=== PATIENT | female | born 1950 | race Caucasian/White ===

== ENCOUNTER 2016-03-06 11:34 | Outpatient (RCR) | payer MEDICARE, OTHER ==
--- OUTSIDE RECORDS SUMMARY | 2015-12-27 13:09 | XMS REPORT | Continuity of Care Document ---
Author Author [facility] Organization [facility] Address Unknown Phone Unavailable Care Team Providers Care Butter Production Supervisor Name Role Phone LalaLeah hernández PCP [phone] Source Comments Some departments are not documenting in the electronic medical record. If you do not see the information that you expected, contact Release of Information in the Health Information Management department at [phone] for further assistance in locating additional records.[facility] Active Allergies and Adverse Reactions No Known Allergies Current Medications Prescription Sig. Disp. Refills Start End Date Status Date warfarin (COUMADIN) 5 mg Take by mouth daily. Active tablet 10mg Sun, Tu, Wed, Fri, Sat; 5 mg M and Thurs acetaminophen (TYLENOL) Take 500 mg by mouth Active 500 mg tablet every 6 hours as needed. diltiazem CD (CARDIZEM Take 120 mg by mouth Active CD) 120 mg capsule twice daily. metFORMIN (GLUCOPHAGE) Take 500 mg by mouth Active 500 mg tablet twice daily with meals. vitamins, B complex tab Take 1 Tab by mouth Active daily. HYDROcodone/acetaminophen Take 1 Tab by mouth as Active (NORCO) 7.5/325 mg tablet Needed for Pain Pt states taking once a month for knee pain cholecalciferol (VITAMIN Take 1,000 Units by mouth Active D-3) 1,000 units tablet daily. Active Problems Problem Noted Date Type 2 diabetes mellitus (HCC) 10/16/2015 Essential hypertension 10/16/2015 Osteoarthritis 10/16/2015 PE (pulmonary thromboembolism) (HCC) 10/16/2015 Hyperparathyroidism (HCC) 10/16/2015 Persistent atrial fibrillation (HCC) 10/16/2015 Overview: June 21, 2015 noted AF (has had in past but usually spontaneously converts July 2015 ORACIO/Cardioversion Hypercalcemia 08/01/2014 Most Recent Encounters Date Type Specialty Providers Description 10/24/2015 Telephone Oncology Jeff Scott MD Results 10/17/2015 Office Visit Cardiology Richard Hdez MD Cardiac Eval - AFIB 10/17/2015 Documentation Cardiology Mariaa De Anda Records Request - Villa Francis MD Social History Tobacco Use Types Packs/Day Years Used Date Never Smoker Smokeless Tobacco: Never Used Alcohol Use Drinks/Week oz/Week Comments Yes 1 Glasses of 0.6 i-2 a month socially wine Last Filed Vital Signs Vital Sign Reading Time Taken Blood Pressure 148/80 10/17/2015 9:31 AM CDT Pulse 65 10/17/2015 9:31 AM CDT Temperature 36.8 C (98.2 F) 03/27/2015 1:43 PM CASING IN LINE SETTER Respiratory Rate 16 03/27/2015 1:43 PM CASING IN LINE SETTER Height 1.702 m (5' 7") 10/17/2015 9:31 AM CDT Weight 107.956 kg (238 lb) 10/17/2015 9:31 AM CDT Body Mass Index 37.27 10/17/2015 9:31 AM CDT Oxygen Saturation 99% 03/27/2015 1:43 PM CASING IN LINE SETTER Plan of Care Health Maintenance Due Date Last Done Comments Hepatitis C Screening 1948 Physical (Comprehensive) 1955 Exam Pertussis Vaccine 1959 Tetanus Vaccine 1965 Dilated Eye Exam 1966 Foot Exam 1966 Hba1c 1966 Microalbumin 1966 Breast Cancer Screening 1988 Colorectal Cancer 1998 Screening Shingles Vaccine 2008 Osteoporosis Screening 2013 Prevnar/Pneumovax (#1) 2013 Influenza Vaccine 10/18/2015 Results from Last 3 Months Not on file
[2015-12-27 13:34] LABS: INR 2.6 (0.8-1.4); PROTHROMBIN TIME PATIENT 27.8 SEC (12.2-14.7)
[2016-01-17 09:51] LABS: INR 2.9 (0.8-1.4); PROTHROMBIN TIME PATIENT 29.9 SEC (12.2-14.7)
[2016-01-31 11:51] LABS: INR 2.4 (0.8-1.4)
[~2016-03-06 11:34] MED LIST: ACET-819 PO; ACHD5005 PO; ALBU8.5H4 IH; ASP81CT PO; ASP81TEC PO; ASPI-875 PO; B COMPLEX; BISO1TAB39 PO; CHOL100048 PO; DICL100G20 TOP; DILT120C PO; DILT120C53 PO; DILT120T11 PO; DOFE250C PO; ENOX100D9 SQ; HYDR-3812 PO; HYDR-3816 PO; HYDR-3857 PO; METF500T PO; METF500T4 PO; METO50TA2 PO; MTF500T PO; MULT-608 PO; OXYC-12 PO; PARO10TA21 PO; PARO20TA5 PO; VITA1CAP PO; VITA1TAB44 PO; WARF-48 PO; WARF10TA5 PO; WARF5TAB6 PO; WARF5TAB8 PO; WARF7.5T PO; WRF10T PO
[2016-03-06 11:52] LABS: INR 2.7 (0.8-1.4); PROTHROMBIN TIME PATIENT 28.2 SEC (12.2-14.7)
== END 2016-03-26 | disposition home or self-care (01) ==
LOC: LAB 11:34
PROVIDERS: ATTEND Internal Medicine Cardiovascular Disease
DX: I48.91 Unspecified atrial fibrillation (principal)
CPT/HCPCS: 36415; 85610

== ENCOUNTER 2016-05-12 12:46 | Outpatient (RCR) | payer MEDICARE, OTHER ==
--- OUTSIDE RECORDS SUMMARY | 2016-04-02 10:02 | XMS REPORT | Continuity of Care Document ---
Author Author [facility] Organization [facility] Address Unknown Phone Unavailable Care Team Providers Care Stationary Engineer Supervisor Name Role Phone LalaLeah hernández PCP [phone] Source Comments Some departments are not documenting in the electronic medical record. If you do not see the information that you expected, contact Release of Information in the Health Information Management department at [phone] for further assistance in locating additional records.[facility] Active Allergies and Adverse Reactions No Known Allergies Current Medications Prescription Sig. Disp. Refills Start End Date Status Date warfarin (COUMADIN) 5 mg Take by mouth daily. Active tablet 10mg Sun, Tu, Wed, Fri, Sat; 5 mg M and Th acetaminophen (TYLENOL) Take 500 mg by mouth [...] spontaneously converts July 2015 ORACIO/Cardioversion Hypercalcemia 08/01/2014 Social History Tobacco Use Types Packs/Day Years Used Date Never Smoker Smokeless Tobacco: Never Used Alcohol Use Drinks/Week oz/Week Comments Yes 1 Glasses of 0.6 i-2 a month socially wine Last Filed Vital Signs Vital Sign Reading Time Taken Blood Pressure 148/80 10/17/2015 9:31 AM CDT Pulse 65 10/17/2015 9:31 AM CDT Temperature 36.8 C (98.2 F) 03/27/2015 1:43 PM PROTOCOL MANAGER Respiratory Rate 16 03/27/2015 1:43 PM PROTOCOL MANAGER Height 1.702 m (5' 7") 10/17/2015 9:31 AM CDT Weight 107.956 kg (238 lb) 10/17/2015 9:31 AM CDT Body Mass Index 37.27 10/17/2015 9:31 AM CDT Oxygen Saturation 99% 03/27/2015 1:43 PM PROTOCOL MANAGER Plan of Care Health Maintenance Due Date [...]
[2016-04-02 10:09] LABS: INR 2.6 (0.8-1.4); PROTHROMBIN TIME PATIENT 27.5 SEC (12.2-14.7)
[2016-05-01 12:00] LABS: INR 3.2 (0.8-1.4)
[2016-05-12 13:13] LABS: INR 2.6 (0.8-1.4); PROTHROMBIN TIME PATIENT 27.4 SEC (12.2-14.7)
== END 2016-07-01 | disposition home or self-care (01) ==
LOC: LAB 12:46
PROVIDERS: ATTEND Internal Medicine Cardiovascular Disease
DX: I48.91 Unspecified atrial fibrillation (principal); D68.52 Prothrombin gene mutation; I26.99 Other pulmonary embolism without acute cor pulmonale
CPT/HCPCS: 36415; 85610

== ENCOUNTER → 2016-06-03 | Outpatient (CLI) | payer MEDICARE, OTHER ==
[2016-06-03 10:26] LABS: BASOPHILS % (AUTO) 0 % (0-10); EOSINOPHILS # (AUTO) 0.3 10^3/uL (0.0-0.3); EOSINOPHILS % (AUTO) 5 % (0-10); LYMPHOCYTES # (AUTO) 1.9 X 10^3 (1.0-4.0); LYMPHOCYTES % (AUTO) 34 % (12-44); MEAN CORPUSCULAR HEMOGLOBIN 25 PG (25-34); MEAN CORPUSCULAR HGB CONC 31 G/DL (32-36); MEAN CORPUSCULAR VOLUME 81 FL (80-99); MEAN PLATELET VOLUME 10.2 FL (7.4-10.4); MONOCYTES # (AUTO) 0.4 X 10^3 (0.0-1.0); MONOCYTES % (AUTO) 7 % (0-12); NEUTROPHILS % (AUTO) 53 % (42-75); PLATELET COUNT 265 10^3/uL (130-400); WHITE BLOOD COUNT 5.7 10^3/uL (4.3-11.0)
[2016-06-03 10:45] LABS: ALANINE AMINOTRANSFERASE 14 U/L (0-55); ALBUMIN 4.2 G/DL (3.2-4.5); ANION GAP 8 MMOL/L (5-14); ASPARTATE AMINO TRANSFERASE 15 U/L (5-34); BILIRUBIN,TOTAL 0.4 MG/DL (0.1-1.0); BLOOD UREA NITROGEN 13 MG/DL (7-18); BUN/CREATININE RATIO 20; CALCIUM 9.7 MG/DL (8.5-10.1); CARBON DIOXIDE 23 MMOL/L (21-32); CHLORIDE 109 MMOL/L (98-107); CHOLESTEROL 186 MG/DL (< 200); CREATININE SERUM 0.66 MG/DL (0.60-1.30); GFR ESTIMATED > 60; GLUCOSE 110 MG/DL (70-105); POTASSIUM 4.4 MMOL/L (3.6-5.0); SODIUM 140 MMOL/L (135-145); TRIGLYCERIDES 110 MG/DL (<150)
[2016-06-03 11:05] LABS: THYROID STIMULATING HORMONE 1.04 UIU/ML (0.35-4.94)
[2016-06-04 07:47] LABS: MICROALBUMIN/CREATININE RATIO 9.2 mg/gCR (0.0-30.0)
== END ==
LOC: LAB 10:02
PROVIDERS: ATTEND Internal Medicine
DX: Z00.00 Encounter for general adult medical examination without abnormal findings (principal); E11.65 Type 2 diabetes mellitus with hyperglycemia; E78.1 Pure hyperglyceridemia; E78.00 Pure hypercholesterolemia, unspecified
CPT/HCPCS: 36415; 80053; 82043; 82465; 83036; 84443; 84478; 85025

== ENCOUNTER → 2016-06-26 | Outpatient (CLI) | payer MEDICARE, OTHER ==
--- NOTE | 2016-06-26 20:04 | Diagnostic Imaging Report ---
Bilateral diagnostic mammogram. INDICATION: Increased calcifications seen in the breasts. COMPARISON: 06/21/2015 and prior exams. The current study was also evaluated with a Computer Aided Detection (CAD) system. FINDINGS: There are scattered benign-appearing desiccations seen bilaterally. Bilateral prominent benign-appearing calcifications are noted stable from June 2015 exam in favor of benign etiology. Stable inferior periareolar nodule likely an intramammary lymph node. IMPRESSION: Stable bilateral calcifications likely dystrophic or related to fibroadenomas. Annual screening mammograms recommended. ACR BI-RADS Category 2: Benign findings. Result letter will be mailed to the patient. Note: At least 10% of breast cancer is not imaged by mammography. Dictated by: Dictated on workstation # [id number]
== END ==
LOC: RAD 08:52
PROVIDERS: ATTEND Internal Medicine
DX: N63 Unspecified lump in breast (principal)
CPT/HCPCS: 77066

== ENCOUNTER 2016-08-07 11:28 | Outpatient (RCR) | payer MEDICARE, OTHER ==
[2016-06-09 15:44] LABS: INR 2.5 (0.8-1.4); PROTHROMBIN TIME PATIENT 27.1 SEC (12.2-14.7)
[2016-07-07 10:31] LABS: INR 2.5 (0.8-1.4)
[2016-08-07 11:46] LABS: PROTHROMBIN TIME PATIENT 22.7 SEC (12.2-14.7)
== END 2016-09-07 | disposition home or self-care (01) ==
LOC: LAB 11:28
PROVIDERS: ATTEND Internal Medicine Cardiovascular Disease
DX: I48.0 Paroxysmal atrial fibrillation (principal); D68.52 Prothrombin gene mutation; I26.99 Other pulmonary embolism without acute cor pulmonale
CPT/HCPCS: 36415; 85610

== ENCOUNTER 2016-11-11 10:56 | Outpatient (RCR) | payer MEDICARE, OTHER ==
[2016-09-09 14:50] LABS: INR 2.6 (0.8-1.4); PROTHROMBIN TIME PATIENT 27.7 SEC (12.2-14.7)
[2016-10-13 18:56] LABS: INR 2.6 (0.8-1.4)
[2016-11-11 11:37] LABS: INR 2.5 (0.8-1.4); PROTHROMBIN TIME PATIENT 26.9 SEC (12.2-14.7)
== END 2016-11-15 | disposition home or self-care (01) ==
LOC: LAB 10:56
PROVIDERS: ATTEND Internal Medicine Cardiovascular Disease
DX: I48.0 Paroxysmal atrial fibrillation (principal); D68.52 Prothrombin gene mutation; I26.99 Other pulmonary embolism without acute cor pulmonale
CPT/HCPCS: 36415; 85610

== ENCOUNTER → 2016-12-02 | Outpatient (CLI) | payer MEDICARE, OTHER ==
[2016-12-02 10:00] LABS: ALANINE AMINOTRANSFERASE 17 U/L (0-55); ALBUMIN 4.2 GM/DL (3.2-4.5); ANION GAP 10 MMOL/L (5-14); ASPARTATE AMINO TRANSFERASE 17 U/L (5-34); BILIRUBIN,TOTAL 0.3 MG/DL (0.1-1.0); BLOOD UREA NITROGEN 14 MG/DL (7-18); BUN/CREATININE RATIO 21; CALCIUM 10.1 MG/DL (8.5-10.1); CARBON DIOXIDE 24 MMOL/L (21-32); CHLORIDE 106 MMOL/L (98-107); CHOLESTEROL 185 MG/DL (< 200); CREATININE SERUM 0.66 MG/DL (0.60-1.30); DIRECT LDL 105 MG/DL (1-129); GFR ESTIMATED > 60; GLUCOSE 110 MG/DL (70-105); POTASSIUM 4.4 MMOL/L (3.6-5.0); SODIUM 140 MMOL/L (135-145); TOTAL PROTEIN 7.8 GM/DL (6.4-8.2); TRIGLYCERIDES 116 MG/DL (<150); VLDL CHOLESTEROL 23 MG/DL (5-40)
== END ==
LOC: LAB 08:53
PROVIDERS: ATTEND Internal Medicine
DX: E78.00 Pure hypercholesterolemia, unspecified (principal); E78.1 Pure hyperglyceridemia; E11.65 Type 2 diabetes mellitus with hyperglycemia

== ENCOUNTER 2017-03-05 11:27 | Outpatient (RCR) | payer MEDICARE, OTHER ==
[2016-12-11 13:43] LABS: INR 2.3 (0.8-1.4)
[2017-01-05 12:27] LABS: INR 2.8 (0.8-1.4); PROTHROMBIN TIME PATIENT 29.6 SEC (12.2-14.7)
[2017-02-02 15:34] LABS: INR 2.5 (0.8-1.4); PROTHROMBIN TIME PATIENT 27.2 SEC (12.2-14.7)
[~2017-03-05 11:27] MED LIST changes: -HYDR-3812 PO; +METO50TA15 PO; -METO50TA2 PO
[2017-03-05 11:46] LABS: INR 2.6 (0.8-1.4); PROTHROMBIN TIME PATIENT 28.1 SEC (12.2-14.7)
== END 2017-03-11 | disposition home or self-care (01) ==
LOC: LAB 11:27
PROVIDERS: ATTEND Internal Medicine Cardiovascular Disease
DX: I48.0 Paroxysmal atrial fibrillation (principal); D68.52 Prothrombin gene mutation; I26.99 Other pulmonary embolism without acute cor pulmonale
CPT/HCPCS: 36415; 85610

== ENCOUNTER → 2017-06-29 | Outpatient (CLI) | payer MEDICARE, OTHER ==
[~2017-06-29] MED LIST changes: +HYDR-34 PO; -HYDR-3816 PO; -METF500T4 PO; +METF500T5 PO
--- NOTE | 2017-06-29 13:40 | Diagnostic Imaging Report ---
INDICATION: Routine screening. COMPARISON: 06/26/2016 and 06/21/2015. TECHNIQUE: 2D and 3D bilateral screening mammography was performed with CAD. FINDINGS: Scattered fibroglandular densities are identified bilaterally. Benign calcific masses in the right breast appear stable. A benign-appearing nodular density in the retroareolar right breast appears stable. Benign calcifications in the left breast appear stable as well. No dominant mass or malignant appearing microcalcifications are seen. The axillae are unremarkable. IMPRESSION: No mammographic features suspicious for malignancy are identified. ACR BI-RADS Category 2: Benign findings. Result letter will be mailed to the patient. Note: At least 10% of breast cancer is not imaged by mammography. Dictated by: Dictated on workstation # [id number]
== END ==
LOC: RAD 09:49
PROVIDERS: ATTEND Internal Medicine
DX: Z12.31 Encounter for screening mammogram for malignant neoplasm of breast (principal)
CPT/HCPCS: 77067

== ENCOUNTER 2017-07-03 13:15 | Outpatient (RCR) | payer MEDICARE, OTHER ==
[2017-04-07 12:42] LABS: INR 2.6 (0.8-1.4); PROTHROMBIN TIME PATIENT 27.4 SEC (12.2-14.7)
[2017-05-05 11:37] LABS: INR 2.6 (0.8-1.4); PROTHROMBIN TIME PATIENT 28.1 SEC (12.2-14.7)
[2017-06-02 13:29] LABS: INR 2.7 (0.8-1.4); PROTHROMBIN TIME PATIENT 28.3 SEC (12.2-14.7)
[2017-07-03 13:34] LABS: INR 2.7 (0.8-1.4); PROTHROMBIN TIME PATIENT 28.5 SEC (12.2-14.7)
== END 2017-07-06 | disposition home or self-care (01) ==
LOC: LAB 13:15
PROVIDERS: ATTEND Internal Medicine Cardiovascular Disease
DX: I48.0 Paroxysmal atrial fibrillation (principal); D68.52 Prothrombin gene mutation; I26.99 Other pulmonary embolism without acute cor pulmonale
CPT/HCPCS: 36415; 85610

== ENCOUNTER 2017-10-13 10:24 | Outpatient (RCR) | payer MEDICARE, OTHER ==
[2017-08-03 12:50] LABS: INR 3.1 (0.8-1.4); PROTHROMBIN TIME PATIENT 32.1 SEC (12.2-14.7)
[2017-08-13 13:39] LABS: INR 2.2 (0.8-1.4); PROTHROMBIN TIME PATIENT 24.6 SEC (12.2-14.7)
[2017-09-10 11:41] LABS: PROTHROMBIN TIME PATIENT 31.4 SEC (12.2-14.7)
[2017-09-14 14:35] LABS: INR 2.4 (0.8-1.4)
[~2017-10-13 10:24] MED LIST changes: +METF-397 PO; -METF500T5 PO
[2017-10-13 11:30] LABS: INR 2.4 (0.8-1.4); PROTHROMBIN TIME PATIENT 26.6 SEC (12.2-14.7)
== END 2017-11-01 | disposition home or self-care (01) ==
LOC: LAB 10:24
PROVIDERS: ATTEND Internal Medicine Cardiovascular Disease
DX: I48.0 Paroxysmal atrial fibrillation (principal)
CPT/HCPCS: 36415; 85610

== ENCOUNTER 2017-11-12 13:31 | Outpatient (RCR) | payer MEDICARE, OTHER ==
[2017-11-12 13:55] LABS: INR 2.6 (0.8-1.4); PROTHROMBIN TIME PATIENT 27.8 SEC (12.2-14.7)
== END 2017-11-15 | disposition home or self-care (01) ==
LOC: LAB 13:31
PROVIDERS: ATTEND Internal Medicine Cardiovascular Disease
DX: I48.0 Paroxysmal atrial fibrillation (principal)
CPT/HCPCS: 36415; 85610

== ENCOUNTER → 2017-12-10 | Outpatient (CLI) | payer MEDICARE, OTHER ==
[2017-12-10 12:00] LABS: ALANINE AMINOTRANSFERASE 18 U/L (0-55); ALBUMIN 4.4 GM/DL (3.2-4.5); ALKALINE PHOSPHATASE 70 U/L (40-136); BILIRUBIN,TOTAL 0.4 MG/DL (0.1-1.0); BUN/CREATININE RATIO 21; CALCIUM 10.3 MG/DL (8.5-10.1); CARBON DIOXIDE 24 MMOL/L (21-32); CHLORIDE 106 MMOL/L (98-107); CHOLESTEROL 196 MG/DL (< 200); CREATININE SERUM 0.68 MG/DL (0.60-1.30); GFR ESTIMATED > 60; GLUCOSE 106 MG/DL (70-105); HDL CHOLESTEROL 68 MG/DL (40-60); POTASSIUM 4.4 MMOL/L (3.6-5.0); SODIUM 139 MMOL/L (135-145); TOTAL PROTEIN 7.6 GM/DL (6.4-8.2); TRIGLYCERIDES 97 MG/DL (<150); VLDL CHOLESTEROL 19 MG/DL (5-40)
[2017-12-10 12:20] LABS: FREE T4 (FREE THYROXINE) 1.06 NG/DL (0.70-1.48)
== END ==
LOC: RAD 11:08
PROVIDERS: ATTEND Internal Medicine
DX: E78.1 Pure hyperglyceridemia (principal); E03.9 Hypothyroidism, unspecified; E11.65 Type 2 diabetes mellitus with hyperglycemia; E78.00 Pure hypercholesterolemia, unspecified
CPT/HCPCS: 36415; 80053; 80061; 83036; 84439; 84443

== ENCOUNTER 2018-01-05 12:34 | Outpatient (RCR) | payer MEDICARE, OTHER ==
[2018-01-05 13:01] LABS: INR 2.7 (0.8-1.4); PROTHROMBIN TIME PATIENT 28.6 SEC (12.2-14.7)
[2018-02-04 11:56] LABS: INR 2.9 (0.8-1.4); PROTHROMBIN TIME PATIENT 30.2 SEC (12.2-14.7)
[2018-03-05 16:34] LABS: INR 2.2 (0.8-1.4); PROTHROMBIN TIME PATIENT 24.2 SEC (12.2-14.7)
== END 2018-04-05 | disposition home or self-care (01) ==
LOC: LAB 12:34
PROVIDERS: ATTEND Internal Medicine Cardiovascular Disease
DX: I48.0 Paroxysmal atrial fibrillation (principal)
CPT/HCPCS: 36415; 85610

== ENCOUNTER → 2018-03-09 | Outpatient (CLI) | payer MEDICARE, OTHER | LOC: CARD 12:49 | PROVIDERS: ATTEND Nurse Practitioner Family | DX: I48.0 Paroxysmal atrial fibrillation (principal); Q21.1 Atrial septal defect | CPT/HCPCS: 93306 ==

== ENCOUNTER 2018-05-10 11:57 | Outpatient (RCR) | payer MEDICARE, OTHER ==
[2018-04-19 12:28] LABS: INR 3.1 (0.8-1.4); PROTHROMBIN TIME PATIENT 32.1 SEC (12.2-14.7)
[2018-04-26 17:28] LABS: PROTHROMBIN TIME PATIENT 31.5 SEC (12.2-14.7)
[2018-05-10 12:20] LABS: PROTHROMBIN TIME PATIENT 23.8 SEC (12.2-14.7)
[2018-06-10 11:56] LABS: INR 2.2 (0.8-1.4); PROTHROMBIN TIME PATIENT 25.1 SEC (12.2-14.7)
[2018-07-08 14:03] LABS: PROTHROMBIN TIME PATIENT 23.7 SEC (12.2-14.7)
== END 2018-07-18 | disposition home or self-care (01) ==
LOC: LAB 11:57
PROVIDERS: ATTEND Internal Medicine Cardiovascular Disease
DX: I48.0 Paroxysmal atrial fibrillation (principal)
CPT/HCPCS: 36415; 85610

== ENCOUNTER → 2018-06-22 | Outpatient (CLI) | payer MEDICARE, OTHER ==
[2018-06-22 10:19] LABS: BASOPHILS % (AUTO) 0 % (0-10); EOSINOPHILS # (AUTO) 0.2 10^3/uL (0.0-0.3); EOSINOPHILS % (AUTO) 4 % (0-10); HEMATOCRIT 41 % (35-52); LYMPHOCYTES # (AUTO) 1.9 X 10^3 (1.0-4.0); LYMPHOCYTES % (AUTO) 38 % (12-44); MEAN CORPUSCULAR HEMOGLOBIN 26 PG (25-34); MEAN CORPUSCULAR HGB CONC 32 G/DL (32-36); MEAN CORPUSCULAR VOLUME 81 FL (80-99); MEAN PLATELET VOLUME 9.8 FL (7.4-10.4); MONOCYTES # (AUTO) 0.4 X 10^3 (0.0-1.0); MONOCYTES % (AUTO) 7 % (0-12); NEUTROPHILS # (AUTO) 2.6 X 10^3 (1.8-7.8); NEUTROPHILS % (AUTO) 51 % (42-75); PLATELET COUNT 268 10^3/uL (130-400); RED CELL DISTRIBUTION WIDTH 15.9 % (10.0-14.5); WHITE BLOOD COUNT 5.1 10^3/uL (4.3-11.0)
[2018-06-22 10:46] LABS: ALANINE AMINOTRANSFERASE 22 U/L (0-55); ALBUMIN 4.3 GM/DL (3.2-4.5); ALKALINE PHOSPHATASE 74 U/L (40-136); BILIRUBIN,TOTAL 0.5 MG/DL (0.1-1.0); BUN/CREATININE RATIO 16; CARBON DIOXIDE 26 MMOL/L (21-32); CHLORIDE 107 MMOL/L (98-107); CHOLESTEROL 204 MG/DL (< 200); CREATININE SERUM 0.69 MG/DL (0.60-1.30); GFR ESTIMATED > 60; GLUCOSE 103 MG/DL (70-105); HDL CHOLESTEROL 76 MG/DL (40-60); POTASSIUM 4.4 MMOL/L (3.6-5.0); SODIUM 140 MMOL/L (135-145); TOTAL PROTEIN 7.4 GM/DL (6.4-8.2); TRIGLYCERIDES 85 MG/DL (<150); VLDL CHOLESTEROL 17 MG/DL (5-40)
== END ==
LOC: LAB 10:03
PROVIDERS: ATTEND Internal Medicine
DX: Z00.00 Encounter for general adult medical examination without abnormal findings (principal); E11.65 Type 2 diabetes mellitus with hyperglycemia; E78.00 Pure hypercholesterolemia, unspecified; E78.1 Pure hyperglyceridemia
CPT/HCPCS: 36415; 80053; 80061; 83036; 84443; 85025

== ENCOUNTER → 2018-07-13 | Outpatient (CLI) | payer MEDICARE, OTHER ==
--- NOTE | 2018-07-13 13:41 | Diagnostic Imaging Report ---
INDICATION: Routine screening. COMPARISON: 06/29/2017 and 06/26/2016. TECHNIQUE: 2D and 3D bilateral screening mammography was performed with CAD. FINDINGS: Scattered fibroglandular densities are identified bilaterally. Calcified masses in the right breast appear stable. A stereotactic clip in the right breast is also again noted. A cluster of microcalcifications in the medial left breast are stable. No new mass or suspicious calcifications are seen. The axillae are unremarkable. IMPRESSION: No mammographic features suspicious for malignancy are identified. ACR BI-RADS Category 2: Benign findings. Result letter will be mailed to the patient. Note: At least 10% of breast cancer is not imaged by mammography. Dictated by: Dictated on workstation # [id number]
== END ==
LOC: RAD 11:22
PROVIDERS: ATTEND Internal Medicine
DX: Z12.31 Encounter for screening mammogram for malignant neoplasm of breast (principal)
CPT/HCPCS: 77067

== ENCOUNTER 2018-09-30 10:40 | Outpatient (RCR) | payer MEDICARE, OTHER ==
[2018-08-05 13:51] LABS: PROTHROMBIN TIME PATIENT 23.1 SEC (12.2-14.7)
[2018-09-02 11:47] LABS: INR 2.6 (0.8-1.4); PROTHROMBIN TIME PATIENT 29.3 SEC (12.2-14.7)
[2018-09-30 11:08] LABS: INR 2.2 (0.8-1.4); PROTHROMBIN TIME PATIENT 24.9 SEC (12.2-14.7)
[2018-10-28 11:41] LABS: INR 2.8 (0.8-1.4); PROTHROMBIN TIME PATIENT 30.4 SEC (12.2-14.7)
== END 2018-11-03 | disposition home or self-care (01) ==
LOC: LAB 10:40
PROVIDERS: ATTEND Internal Medicine Cardiovascular Disease
DX: I48.0 Paroxysmal atrial fibrillation (principal)
CPT/HCPCS: 36415; 85610

== ENCOUNTER → 2018-11-30 | Outpatient (CLI) | payer MEDICARE, OTHER ==
[2018-11-30 10:45] LABS: ALANINE AMINOTRANSFERASE 24 U/L (0-55); ALBUMIN 4.2 GM/DL (3.2-4.5); ALKALINE PHOSPHATASE 73 U/L (40-136); BILIRUBIN,TOTAL 0.4 MG/DL (0.1-1.0); BUN/CREATININE RATIO 24; CALCIUM 9.4 MG/DL (8.5-10.1); CARBON DIOXIDE 26 MMOL/L (21-32); CHLORIDE 107 MMOL/L (98-107); CHOLESTEROL 184 MG/DL (< 200); GFR ESTIMATED > 60; GLUCOSE 105 MG/DL (70-105); POTASSIUM 4.8 MMOL/L (3.6-5.0); SODIUM 139 MMOL/L (135-145); TRIGLYCERIDES 75 MG/DL (<150)
== END ==
LOC: LAB 09:36
PROVIDERS: ATTEND Internal Medicine
DX: Z00.00 Encounter for general adult medical examination without abnormal findings (principal); E11.65 Type 2 diabetes mellitus with hyperglycemia; E78.00 Pure hypercholesterolemia, unspecified; E78.1 Pure hyperglyceridemia
CPT/HCPCS: 36415; 80053; 82465; 83036; 84478

== ENCOUNTER 2019-02-11 12:10 | Outpatient (RCR) | payer MEDICARE, OTHER ==
[2018-11-30 10:43] LABS: INR 2.2 (0.8-1.4); PROTHROMBIN TIME PATIENT 25.6 SEC (12.2-14.7)
[2019-01-27 13:34] LABS: INR 3.1 (0.8-1.4); PROTHROMBIN TIME PATIENT 33.2 SEC (12.2-14.7)
[2019-02-11 12:29] LABS: INR 2.9 (0.8-1.4); PROTHROMBIN TIME PATIENT 31.7 SEC (12.2-14.7)
== END 2019-02-28 | disposition home or self-care (01) ==
LOC: LAB 12:10
PROVIDERS: ATTEND Internal Medicine Cardiovascular Disease
DX: I48.0 Paroxysmal atrial fibrillation (principal)
CPT/HCPCS: 36415; 85610

== ENCOUNTER 2019-05-12 10:22 | Outpatient (RCR) | payer MEDICARE, OTHER ==
[2019-03-03 15:08] LABS: PROTHROMBIN TIME PATIENT 32.5 SEC (12.2-14.7)
[2019-03-17 10:47] LABS: INR 2.2 (0.8-1.4); PROTHROMBIN TIME PATIENT 25.2 SEC (12.2-14.7)
[2019-04-14 13:52] LABS: INR 2.6 (0.8-1.4); PROTHROMBIN TIME PATIENT 28.7 SEC (12.2-14.7)
[2019-05-12 10:40] LABS: INR 2.9 (0.8-1.4); PROTHROMBIN TIME PATIENT 31.8 SEC (12.2-14.7)
== END 2019-06-01 | disposition home or self-care (01) ==
LOC: LAB 10:22
PROVIDERS: ATTEND Internal Medicine Cardiovascular Disease
DX: I48.0 Paroxysmal atrial fibrillation (principal)
CPT/HCPCS: 36415; 85610

== ENCOUNTER → 2019-06-01 | Outpatient (CLI) | payer MEDICARE, OTHER ==
[2019-06-01 12:02] LABS: BASOPHILS % (AUTO) 0 % (0-10); EOSINOPHILS # (AUTO) 0.3 10^3/uL (0.0-0.3); EOSINOPHILS % (AUTO) 5 % (0-10); HEMATOCRIT 41 % (35-52); HEMOGLOBIN 13.2 G/DL (11.5-16.0); LYMPHOCYTES # (AUTO) 1.9 X 10^3 (1.0-4.0); LYMPHOCYTES % (AUTO) 37 % (12-44); MEAN CORPUSCULAR HEMOGLOBIN 26 PG (25-34); MEAN CORPUSCULAR HGB CONC 32 G/DL (32-36); MEAN CORPUSCULAR VOLUME 82 FL (80-99); MONOCYTES # (AUTO) 0.4 X 10^3 (0.0-1.0); MONOCYTES % (AUTO) 8 % (0-12); NEUTROPHILS # (AUTO) 2.6 X 10^3 (1.8-7.8); NEUTROPHILS % (AUTO) 51 % (42-75); PLATELET COUNT 246 10^3/uL (130-400); RED CELL DISTRIBUTION WIDTH 15.3 % (10.0-14.5); WHITE BLOOD COUNT 5.2 10^3/uL (4.3-11.0)
[2019-06-01 12:14] LABS: ALBUMIN 4.2 GM/DL (3.2-4.5); CHLORIDE 107 MMOL/L (98-107); POTASSIUM 4.3 MMOL/L (3.6-5.0); SODIUM 140 MMOL/L (135-145)
[2019-06-01 12:16] LABS: TRIGLYCERIDES 119 MG/DL (<150); VLDL CHOLESTEROL 24 MG/DL (5-40)
[2019-06-01 12:17] LABS: GLUCOSE 99 MG/DL (70-105); TOTAL PROTEIN 7.6 GM/DL (6.4-8.2)
[2019-06-01 12:18] LABS: CARBON DIOXIDE 23 MMOL/L (21-32)
[2019-06-01 12:19] LABS: BILIRUBIN,TOTAL 0.5 MG/DL (0.1-1.0)
[2019-06-01 12:20] LABS: ALKALINE PHOSPHATASE 75 U/L (40-136); GFR ESTIMATED > 60
[2019-06-01 12:21] LABS: CHOLESTEROL 205 MG/DL (< 200)
[2019-06-01 12:22] LABS: BUN/CREATININE RATIO 17
[2019-06-01 12:23] LABS: HDL CHOLESTEROL 68 MG/DL (40-60)
[2019-06-01 12:24] LABS: ALANINE AMINOTRANSFERASE 16 U/L (0-55)
== END ==
LOC: LAB 11:36
PROVIDERS: ATTEND Internal Medicine
DX: E11.65 Type 2 diabetes mellitus with hyperglycemia (principal); I10 Essential (primary) hypertension; Z13.6 Encounter for screening for cardiovascular disorders
CPT/HCPCS: 36415; 80053; 80061; 82043; 83036; 84443; 85025

== ENCOUNTER → 2019-07-19 | Outpatient (CLI) | payer MEDICARE, OTHER ==
--- NOTE | 2019-07-19 19:24 | Diagnostic Imaging Report ---
EXAM: Digital mammogram bilateral screening COMPARISONS: 07/05/2018, 06/29/2017 and 06/26/2016. There are no current complaints. The current study was also evaluated with a Computer Aided Detection (CAD) system. FINDINGS: The fibroglandular tissue in both breasts is heterogeneously dense. This does limit the sensitivity of this exam. Overall, there does not appear to have been any significant change when compared to the prior study. No primary or secondary sign of malignancy is noted. The calcifications seen in both breasts on the prior exam are again evident and not significantly changed. IMPRESSION: There is no radiographic evidence for malignancy. ACR BI-RADS Category 1: Negative. Result letter will be mailed to the patient. Note: At least 10% of breast cancer is not imaged by mammography. Dictated by: Dictated on workstation # [id number]
== END ==
LOC: RAD 09:32
PROVIDERS: ATTEND Internal Medicine
DX: Z12.31 Encounter for screening mammogram for malignant neoplasm of breast (principal)
CPT/HCPCS: 77063; 77067

== ENCOUNTER 2019-07-27 09:40 | Outpatient (RCR) | payer MEDICARE, OTHER ==
[2019-06-16 11:00] LABS: INR 3.8 (0.8-1.4); PROTHROMBIN TIME PATIENT 38.9 SEC (12.2-14.7)
[2019-06-27 11:39] LABS: INR 3.6 (0.8-1.4); PROTHROMBIN TIME PATIENT 37.6 SEC (12.2-14.7)
[2019-07-01 10:27] LABS: INR 1.4 (0.8-1.4); PROTHROMBIN TIME PATIENT 18.2 SEC (12.2-14.7)
[2019-07-12 12:25] LABS: INR 2.1 (0.8-1.4); PROTHROMBIN TIME PATIENT 24.6 SEC (12.2-14.7)
[~2019-07-27 09:40] MED LIST changes: -WARF5TAB8 PO; +WRF5T PO
[2019-07-27 10:18] LABS: INR 2.1 (0.8-1.4); PROTHROMBIN TIME PATIENT 24.6 SEC (12.2-14.7)
== END 2019-09-14 | disposition home or self-care (01) ==
LOC: LAB 09:40
PROVIDERS: ATTEND Internal Medicine Cardiovascular Disease
DX: I48.0 Paroxysmal atrial fibrillation (principal)
CPT/HCPCS: 36415; 85610

== ENCOUNTER 2019-09-22 14:46 | Outpatient (RCR) | payer MEDICARE, OTHER ==
[2019-08-25 11:02] LABS: INR 2.4 (0.8-1.4); PROTHROMBIN TIME PATIENT 26.6 SEC (12.2-14.7)
[2019-09-22 15:09] LABS: INR 2.8 (0.8-1.4); PROTHROMBIN TIME PATIENT 29.9 SEC (12.2-14.7)
== END 2019-11-23 | disposition home or self-care (01) ==
LOC: LAB 14:46
PROVIDERS: ATTEND Internal Medicine Cardiovascular Disease
DX: I48.0 Paroxysmal atrial fibrillation (principal); Z79.01 Long term (current) use of anticoagulants
CPT/HCPCS: 36415; 85610

== ENCOUNTER → 2019-11-30 | Outpatient (CLI) | payer MEDICARE, OTHER ==
[2019-11-30 12:34] LABS: ALANINE AMINOTRANSFERASE 21 U/L (0-55); ALBUMIN 4.1 GM/DL (3.2-4.5); ALKALINE PHOSPHATASE 59 U/L (40-136); BILIRUBIN,TOTAL 0.3 MG/DL (0.1-1.0); BUN/CREATININE RATIO 25; CALCIUM 9.3 MG/DL (8.5-10.1); CARBON DIOXIDE 24 MMOL/L (21-32); CHLORIDE 108 MMOL/L (98-107); CHOLESTEROL 167 MG/DL (< 200); CREATININE SERUM 0.65 MG/DL (0.60-1.30); GFR ESTIMATED > 60; GLUCOSE 108 MG/DL (70-105); POTASSIUM 4.3 MMOL/L (3.6-5.0); SODIUM 141 MMOL/L (135-145); TOTAL PROTEIN 7.4 GM/DL (6.4-8.2); TRIGLYCERIDES 107 MG/DL (<150)
== END ==
LOC: LAB 11:44
PROVIDERS: ATTEND Internal Medicine
DX: E11.65 Type 2 diabetes mellitus with hyperglycemia (principal); I10 Essential (primary) hypertension; Z13.6 Encounter for screening for cardiovascular disorders
CPT/HCPCS: 36415; 80053; 82465; 83036; 84478

== ENCOUNTER 2020-01-18 10:37 | Outpatient (RCR) | payer MEDICARE, OTHER ==
[2019-11-03 15:04] LABS: PROTHROMBIN TIME PATIENT 23.3 SEC (12.2-14.7)
[2019-12-15 13:50] LABS: INR 2.8 (0.8-1.4); PROTHROMBIN TIME PATIENT 30.1 SEC (12.2-14.7)
[2020-01-18 11:07] LABS: INR 2.8 (0.8-1.4); PROTHROMBIN TIME PATIENT 29.6 SEC (12.2-14.7)
== END 2020-02-01 | disposition home or self-care (01) ==
LOC: LAB 10:37
PROVIDERS: ATTEND Internal Medicine Cardiovascular Disease
DX: I48.0 Paroxysmal atrial fibrillation (principal); Z79.01 Long term (current) use of anticoagulants
CPT/HCPCS: 36415; 85610

== ENCOUNTER 2020-04-20 11:42 | Outpatient (RCR) | payer MEDICARE, OTHER ==
[2020-02-15 12:41] LABS: INR 2.7 (0.8-1.4); PROTHROMBIN TIME PATIENT 28.6 SEC (12.2-14.7)
[2020-03-13 12:34] LABS: INR 2.2 (0.8-1.4); PROTHROMBIN TIME PATIENT 24.5 SEC (12.2-14.7)
[2020-04-06 12:54] LABS: INR 1.6 (0.8-1.4); PROTHROMBIN TIME PATIENT 19.2 SEC (12.2-14.7)
[2020-04-20 12:16] LABS: INR 2.5 (0.8-1.4); PROTHROMBIN TIME PATIENT 27.7 SEC (12.2-14.7)
== END 2020-05-15 | disposition home or self-care (01) ==
LOC: LAB 11:42
PROVIDERS: ATTEND Internal Medicine Cardiovascular Disease
DX: I48.0 Paroxysmal atrial fibrillation (principal); Z79.01 Long term (current) use of anticoagulants
CPT/HCPCS: 36415; 85610

== ENCOUNTER → 2020-05-22 | Outpatient (CLI) | payer MEDICARE, OTHER | LOC: CARD 15:00 | PROVIDERS: ATTEND Internal Medicine Cardiovascular Disease | DX: I51.7 Cardiomegaly (principal); Z95.818 Presence of other cardiac implants and grafts | CPT/HCPCS: 93306 ==

== ENCOUNTER → 2020-05-23 | Outpatient (CLI) | payer MEDICARE, OTHER ==
[2020-05-23 09:45] LABS: BASOPHILS % (AUTO) 1 % (0-10); EOSINOPHILS # (AUTO) 0.5 10^3/uL (0.0-0.3); EOSINOPHILS % (AUTO) 9 % (0-10); HEMATOCRIT 41 % (35-52); HEMOGLOBIN 12.8 g/dL (11.5-16.0); LYMPHOCYTES # (AUTO) 1.9 10^3/uL (1.0-4.0); LYMPHOCYTES % (AUTO) 36 % (12-44); MEAN CORPUSCULAR HEMOGLOBIN 27 pg (25-34); MEAN CORPUSCULAR HGB CONC 31 g/dL (32-36); MEAN CORPUSCULAR VOLUME 85 fL (80-99); MEAN PLATELET VOLUME 9.7 fL (9.0-12.2); MONOCYTES # (AUTO) 0.4 10^3/uL (0.0-1.0); MONOCYTES % (AUTO) 7 % (0-12); NEUTROPHILS # (AUTO) 2.6 10^3/uL (1.8-7.8); NEUTROPHILS % (AUTO) 48 % (42-75); PLATELET COUNT 228 10^3/uL (130-400); WHITE BLOOD COUNT 5.4 10^3/uL (4.3-11.0)
[2020-05-23 10:22] LABS: ALANINE AMINOTRANSFERASE 20 U/L (0-55); ALBUMIN 4.1 GM/DL (3.2-4.5); ALKALINE PHOSPHATASE 67 U/L (40-136); BILIRUBIN,TOTAL 0.4 MG/DL (0.1-1.0); BUN/CREATININE RATIO 23; CALCIUM 9.6 MG/DL (8.5-10.1); CARBON DIOXIDE 23 MMOL/L (21-32); CHLORIDE 107 MMOL/L (98-107); CHOLESTEROL 179 MG/DL (< 200); GFR ESTIMATED > 60; GLUCOSE 118 MG/DL (70-105); HDL CHOLESTEROL 67 MG/DL (40-60); SODIUM 140 MMOL/L (135-145); TOTAL PROTEIN 7.4 GM/DL (6.4-8.2); TRIGLYCERIDES 104 MG/DL (<150); VLDL CHOLESTEROL 21 MG/DL (5-40)
== END ==
LOC: LAB 09:17
PROVIDERS: ATTEND Internal Medicine
DX: Z13.6 Encounter for screening for cardiovascular disorders (principal); I10 Essential (primary) hypertension; E11.65 Type 2 diabetes mellitus with hyperglycemia
CPT/HCPCS: 36415; 80053; 80061; 82043; 83036; 84443; 85025

== ENCOUNTER → 2020-06-01 | Outpatient (CLI) | payer MEDICARE, OTHER ==
[~2020-06-01] MED LIST changes: +DILT120C85 PO; +DILT240C87 PO
[2020-06-08 10:23] LABS: BILIRUBIN,URINE NEGATIVE (NEGATIVE); CLARITY,URINE CLEAR; COLOR,URINE YELLOW; GLUCOSE, URINE (UA) NEGATIVE (NEGATIVE); KETONES,URINE NEGATIVE (NEGATIVE); NITRITE,URINE NEGATIVE (NEGATIVE); PH,URINE 5.5 (5-9); PROTEIN,URINE NEGATIVE (NEGATIVE)
[2020-06-08 10:24] LABS: AMORPHOUS SEDIMENT,UR LARGE AMOR URATES /LPF; BACTERIA,URINE NEGATIVE /HPF; CALCIUM OXALATE CRYSTALS,UR RARE /LPF; LEUKOCYTE ESTERASE ,URINE NEGATIVE (NEGATIVE)
== END ==
LOC: LAB 08:00
PROVIDERS: ATTEND Internal Medicine
DX: R35.0 Frequency of micturition (principal)
CPT/HCPCS: 81000

== ENCOUNTER 2020-06-12 08:53 | Day surgery (SDC) | payer MEDICARE, OTHER ==
[~2020-06-12] VITALS: Ht 170 cm; Wt 109.0 kg
[~2020-06-12 08:53] MED LIST changes: -DILT120C85 PO; -DILT240C87 PO
[2020-06-12] MEDS ORDERED: NS IV 1000 ML 1,000 ML ONE (08:54)
[2020-06-12] MEDS ORDERED: NS IV 1000 ML 1,000 ML IV SCH (09:00)
[2020-06-12] MEDS ORDERED: MIDAZOLAM 5 MG/5 ML (VERSED) VIAL IV ONE (09:00)
[2020-06-12 09:35] LABS: HEMOGLOBIN 13.3 g/dL (11.5-16.0); MEAN PLATELET VOLUME 10.1 fL (9.0-12.2); WHITE BLOOD COUNT 5.2 10^3/uL (4.3-11.0)
[2020-06-12] MEDS ORDERED: MIDAZOLAM 5 MG/5 ML (VERSED) VIAL ONE (09:36)
[2020-06-12] MEDS ORDERED: proPOfol 200 MG/20 ML (DIPRIVAN) VIAL IV ONE (09:36)
[2020-06-12 09:48] LABS: INR 3.3 (0.8-1.4)
[2020-06-12 09:55] LABS: ALANINE AMINOTRANSFERASE 17 U/L (0-55); ALBUMIN 4.3 GM/DL (3.2-4.5); ALKALINE PHOSPHATASE 79 U/L (40-136); BILIRUBIN,TOTAL 0.5 MG/DL (0.1-1.0); BUN/CREATININE RATIO 20; CALCIUM 10.5 MG/DL (8.5-10.1); CARBON DIOXIDE 24 MMOL/L (21-32); CHLORIDE 106 MMOL/L (98-107); CHOLESTEROL 187 MG/DL (< 200); CREATININE SERUM 0.82 MG/DL (0.60-1.30); GFR ESTIMATED > 60; GLUCOSE 134 MG/DL (70-105); HDL CHOLESTEROL 72 MG/DL (40-60); POTASSIUM 4.3 MMOL/L (3.6-5.0); SODIUM 141 MMOL/L (135-145); TOTAL PROTEIN 7.9 GM/DL (6.4-8.2); TRIGLYCERIDES 96 MG/DL (<150); VLDL CHOLESTEROL 19 MG/DL (5-40)
[2020-06-12] MEDS ORDERED: DILT120C85 PO (10:00)
[2020-06-12] MEDS ORDERED: DILT240C87 PO (10:00)
[2020-06-12 11:30] VITALS: BP 128/67
--- NOTE | 2020-06-12 14:16 | OPERATIVE REPORT ---
DATE OF SERVICE: 06/12/2020 PREOPERATIVE DIAGNOSIS: Symptomatic atrial fibrillation. POSTOPERATIVE DIAGNOSIS: Sinus rhythm. PROCEDURE: External electrical cardioversion. DESCRIPTION OF PROCEDURE: External electrical cardioversion was carried out after having obtained an informed consent. The patient is chronically and therapeutically anticoagulated for many months. Transesophageal echocardiography, therefore, was not carried out. Informed consent had been obtained for external electrical cardioversion. The nurse industrial maintenance technician gave short acting anesthesia. A 120 joules of synchronized biphasic shock was delivered through external pads, which converted atrial fibrillation to normal sinus rhythm. The patient tolerated the procedure well. Job ID: [id number] DocumentID: [id number] Dictated Date: 06/12/2020 10:56:49 Pathology Tech Date: 06/12/2020 14:15:38 Dictated By: MERCY GOMES MD, MA, FACP, FACC,
== END 2020-06-12 11:30 ==
LOC: CATH 08:53
PROVIDERS: ATTEND Internal Medicine Cardiovascular Disease
DX: I48.0 Paroxysmal atrial fibrillation (principal); G47.33 Obstructive sleep apnea (adult) (pediatric); M17.10 Unilateral primary osteoarthritis, unspecified knee; I27.20 Pulmonary hypertension, unspecified; E66.9 Obesity, unspecified; Z68.37 Body mass index [BMI] 37.0-37.9, adult; Z79.01 Long term (current) use of anticoagulants; Z79.84 Long term (current) use of oral hypoglycemic drugs; Z79.899 Other long term (current) drug therapy; Z95.818 Presence of other cardiac implants and grafts
CPT/HCPCS: 36415; 80053; 80061; 85027; 85610; 85730; 92960; 93005

== ENCOUNTER → 2020-07-19 | Outpatient (CLI) | payer MEDICARE, OTHER ==
[~2020-07-19] MED LIST changes: +DILT120C85 PO; +DILT240C87 PO
--- NOTE | 2020-07-19 14:16 | Diagnostic Imaging Report ---
Indication: Routine screening. Comparison is made with prior mammogram 07/19/2019 and 07/13/2018. 2-D and 3-D bilateral screening mammography was performed with CAD. Both breasts remain heterogeneously dense, limiting the sensitivity of mammography. Multiple partially calcified masses throughout the right breast appears stable. Calcifications in the left breast are stable. No new mass or malignant appearing microcalcifications are seen. Axillae are unremarkable. IMPRESSION: BI-RADS Category 2 No mammographic features suspicious for malignancy are identified. ACR BI-RADS Category 2: Benign findings. Result letter will be mailed to the patient. Note: At least 10% of breast cancer is not imaged by mammography. Dictated by: Dictated on workstation # [id number]
== END ==
LOC: RAD 10:45
PROVIDERS: ATTEND Internal Medicine
DX: Z12.31 Encounter for screening mammogram for malignant neoplasm of breast (principal)
CPT/HCPCS: 77063; 77067

== ENCOUNTER 2020-08-02 10:12 | Outpatient (RCR) | payer MEDICARE, OTHER ==
[2020-05-17 11:56] LABS: INR 3.6 (0.8-1.4); PROTHROMBIN TIME PATIENT 35.8 SEC (12.2-14.7)
[2020-05-31 10:42] LABS: INR 3.2 (0.8-1.4); PROTHROMBIN TIME PATIENT 33.2 SEC (12.2-14.7)
[2020-06-07 13:51] LABS: INR 3.3 (0.8-1.4); PROTHROMBIN TIME PATIENT 33.9 SEC (12.2-14.7)
== END 2020-08-15 | disposition home or self-care (01) ==
LOC: LAB 10:12
PROVIDERS: ATTEND Internal Medicine
DX: I48.0 Paroxysmal atrial fibrillation (principal); Z79.01 Long term (current) use of anticoagulants
CPT/HCPCS: 36415; 81000; 85610

== ENCOUNTER 2020-09-27 10:56 | Outpatient (RCR) | payer MEDICARE, OTHER ==
[2019-11-30 12:23] LABS: INR 3.6 (0.8-1.4); PROTHROMBIN TIME PATIENT 35.8 SEC (12.2-14.7)
[2020-07-09 12:50] LABS: INR 2.4 (0.8-1.4); PROTHROMBIN TIME PATIENT 26.5 SEC (12.2-14.7)
[2020-08-02 10:44] LABS: INR 2.6 (0.8-1.4); PROTHROMBIN TIME PATIENT 28.2 SEC (12.2-14.7)
[2020-08-30 11:18] LABS: INR 2.6 (0.8-1.4); PROTHROMBIN TIME PATIENT 28.5 SEC (12.2-14.7)
[2020-09-27 11:17] LABS: INR 2.9 (0.8-1.4); PROTHROMBIN TIME PATIENT 30.8 SEC (12.2-14.7)
== END 2020-10-07 | disposition home or self-care (01) ==
LOC: LAB 10:56
PROVIDERS: ATTEND Internal Medicine Cardiovascular Disease
DX: I48.0 Paroxysmal atrial fibrillation (principal); Z79.01 Long term (current) use of anticoagulants
CPT/HCPCS: 36415; 85610

== ENCOUNTER → 2020-11-20 | Outpatient (CLI) | payer MEDICARE, OTHER ==
[2020-11-20 10:40] LABS: BASOPHILS % (AUTO) 0 % (0-10); EOSINOPHILS # (AUTO) 0.4 10^3/uL (0.0-0.3); EOSINOPHILS % (AUTO) 7 % (0-10); HEMATOCRIT 39 % (35-52); HEMOGLOBIN 12.5 g/dL (11.5-16.0); LYMPHOCYTES # (AUTO) 1.5 10^3/uL (1.0-4.0); LYMPHOCYTES % (AUTO) 32 % (12-44); MEAN CORPUSCULAR HEMOGLOBIN 27 pg (25-34); MEAN CORPUSCULAR HGB CONC 32 g/dL (32-36); MEAN CORPUSCULAR VOLUME 85 fL (80-99); MEAN PLATELET VOLUME 9.6 fL (9.0-12.2); MONOCYTES # (AUTO) 0.5 10^3/uL (0.0-1.0); MONOCYTES % (AUTO) 9 % (0-12); NEUTROPHILS # (AUTO) 2.5 10^3/uL (1.8-7.8); NEUTROPHILS % (AUTO) 52 % (42-75); PLATELET COUNT 259 10^3/uL (130-400); WHITE BLOOD COUNT 4.9 10^3/uL (4.3-11.0)
[2020-11-20 10:59] LABS: CHOLESTEROL 191 MG/DL (< 200); TRIGLYCERIDES 83 MG/DL (<150)
[2020-11-20 11:19] LABS: BILIRUBIN,TOTAL 0.5 MG/DL (0.1-1.0); CALCIUM 10.2 MG/DL (8.5-10.1); CREATININE SERUM 0.69 MG/DL (0.60-1.30); POTASSIUM 4.3 MMOL/L (3.6-5.0); TOTAL PROTEIN 7.5 GM/DL (6.4-8.2)
== END ==
LOC: LAB 09:59
PROVIDERS: ATTEND Internal Medicine
DX: E11.65 Type 2 diabetes mellitus with hyperglycemia (principal); I10 Essential (primary) hypertension; Z13.6 Encounter for screening for cardiovascular disorders
CPT/HCPCS: 36415; 80053; 80061; 82043; 82465; 83036; 84443; 84478; 85025

== ENCOUNTER 2021-01-08 11:56 | Outpatient (RCR) | payer MEDICARE, OTHER ==
[2020-10-26 11:55] LABS: INR 2.3 (0.8-1.4); PROTHROMBIN TIME PATIENT 25.8 SEC (12.2-14.7)
[2020-11-26 11:44] LABS: INR 2.4 (0.8-1.4); PROTHROMBIN TIME PATIENT 26.7 SEC (12.2-14.7)
[2020-12-24 11:08] LABS: PROTHROMBIN TIME PATIENT 31.8 SEC (12.2-14.7)
[2021-01-08 12:20] LABS: INR 2.1 (0.8-1.4)
== END 2021-01-24 | disposition home or self-care (01) ==
LOC: LAB 11:56
PROVIDERS: ATTEND Nurse Practitioner Family
DX: Z51.81 Encounter for therapeutic drug level monitoring (principal); Z79.01 Long term (current) use of anticoagulants
CPT/HCPCS: 36415; 85610

== ENCOUNTER 2021-02-01 08:30 | Day surgery (SDC) | payer MEDICARE, OTHER ==
[~2021-02-01] VITALS: Ht 170.2 cm; Wt 106.8 kg
[2021-02-01] VITALS (9 sets, daily range): BP systolic 116–133; BP diastolic 63–81
[2021-02-01 07:59] LABS: HEMATOCRIT 41 % (35-52); HEMOGLOBIN 12.8 g/dL (11.5-16.0); MEAN CORPUSCULAR HEMOGLOBIN 27 pg (25-34); MEAN CORPUSCULAR HGB CONC 32 g/dL (32-36); MEAN CORPUSCULAR VOLUME 84 fL (80-99); MEAN PLATELET VOLUME 10.3 fL (9.0-12.2); PLATELET COUNT 270 10^3/uL (130-400); WHITE BLOOD COUNT 5.9 10^3/uL (4.3-11.0)
[2021-02-01 08:21] LABS: ALBUMIN 4.1 GM/DL (3.2-4.5); BILIRUBIN,TOTAL 0.4 MG/DL (0.1-1.0); CREATININE SERUM 0.79 MG/DL (0.60-1.30); POTASSIUM 4.1 MMOL/L (3.6-5.0); TOTAL PROTEIN 7.7 GM/DL (6.4-8.2)
[2021-02-01 08:23] LABS: INR 2.4 (0.8-1.4); PROTHROMBIN TIME PATIENT 26.3 SEC (12.2-14.7)
[~2021-02-01 08:30] MED LIST changes: +L.AC1CAP6 PO; +NS IV 1000 ML 1,000 ML IV SCH; +NS IV 1000 ML 1,000 ML ONE; +proPOfol 200 MG/20 ML (DIPRIVAN) VIAL IV ONE
--- NOTE | 2021-02-01 09:44 | Anesthesia-General Post-Op ---
MAC Patient Condition Mental Status/LOC: Same as Preop Cardiovascular: Satisfactory Nausea/Vomiting: Absent Respiratory: Satisfactory Pain: Controlled Complications: Absent Post Op Complications Complications None Follow Up Care/Instructions Patient Instructions None needed. Anesthesiology Discharge Order Discharge Order Patient is doing well, no complaints, stable vital signs, no apparent adverse anesthesia problems. No complications reported per nursing. OLIVA SANTANA CRNA Feb 01, 2021 09:44
--- NOTE | 2021-02-01 14:44 | OPERATIVE REPORT ---
DATE OF SERVICE: 02/01/2021 PREOPERATIVE DIAGNOSIS: Atrial fibrillation. POSTOPERATIVE DIAGNOSIS: Sinus rhythm. PROCEDURE: External electrical cardioversion. INDICATIONS: The patient is a 70-year-old lady, who has paroxysmal atrial fibrillation from which she gets quite symptomatic. She has been in atrial fibrillation and has been symptomatic. She is chronically and therapeutically anticoagulated with warfarin. She has not missed any doses. We proceeded with external electrical cardioversion after having obtained an informed consent. DESCRIPTION OF PROCEDURE: [facility] The nurse graphics artist provided short- acting anesthesia. A 150 joules of joules of synchronized shock was delivered through external patches, which restored atrial fibrillation to normal sinus rhythm that she continued to maintain. She tolerated the procedure well. Job ID: [id number] DocumentID: [id number] Dictated Date: 02/01/2021 10:15:34 Flight Crew Time Clerk Date: 02/01/2021 14:43:33 Dictated By: MERCY GOMES MD, MA, FACP, FACC, MTDD
== END 2021-02-01 10:00 | disposition home or self-care (01) ==
LOC: CATH 08:30
PROVIDERS: ATTEND Internal Medicine Cardiovascular Disease
DX: I48.0 Paroxysmal atrial fibrillation (principal); I26.99 Other pulmonary embolism without acute cor pulmonale; I51.0 Cardiac septal defect, acquired; G47.30 Sleep apnea, unspecified; M19.90 Unspecified osteoarthritis, unspecified site; E66.9 Obesity, unspecified; E21.3 Hyperparathyroidism, unspecified; Z99.89 Dependence on other enabling machines and devices; Z68.37 Body mass index [BMI] 37.0-37.9, adult; Z79.899 Other long term (current) drug therapy; Z79.891 Long term (current) use of opiate analgesic; Z79.84 Long term (current) use of oral hypoglycemic drugs
CPT/HCPCS: 36415; 80053; 80061; 85027; 85610; 85730; 87081; 92960; 93005

== ENCOUNTER → 2021-02-28 | Outpatient (CLI) | payer MEDICARE, OTHER ==
[~2021-02-28] MED LIST changes: -NS IV 1000 ML 1,000 ML IV SCH; -NS IV 1000 ML 1,000 ML ONE; -proPOfol 200 MG/20 ML (DIPRIVAN) VIAL IV ONE
[2021-02-28 11:09] LABS: INR 2.3 (0.8-1.4); PROTHROMBIN TIME PATIENT 26.1 SEC (12.2-14.7)
== END ==
LOC: LAB 10:39
PROVIDERS: ATTEND Nurse Practitioner Family
DX: Z51.81 Encounter for therapeutic drug level monitoring (principal)
CPT/HCPCS: 36415; 85610

== ENCOUNTER → 2021-03-28 | Outpatient (CLI) | payer MEDICARE, OTHER ==
[2021-03-28 10:58] LABS: INR 2.7 (0.8-1.4); PROTHROMBIN TIME PATIENT 28.8 SEC (12.2-14.7)
== END ==
LOC: LAB 10:21
PROVIDERS: ATTEND Nurse Practitioner Family
DX: Z51.81 Encounter for therapeutic drug level monitoring (principal)
CPT/HCPCS: 36415; 85610

== ENCOUNTER 2021-05-15 11:20 | Outpatient (RCR) | payer MEDICARE, OTHER ==
[2021-05-02 12:16] LABS: INR 2.3 (0.8-1.4); PROTHROMBIN TIME PATIENT 25.9 SEC (12.2-14.7)
[2021-05-09 16:39] LABS: INR 2.4 (0.8-1.4); PROTHROMBIN TIME PATIENT 26.4 SEC (12.2-14.7)
[2021-05-15 11:47] LABS: INR 2.4 (0.8-1.4); PROTHROMBIN TIME PATIENT 26.3 SEC (12.2-14.7)
== END 2021-05-16 | disposition home or self-care (01) ==
LOC: LAB 11:20
PROVIDERS: ATTEND Nurse Practitioner Family
DX: Z51.81 Encounter for therapeutic drug level monitoring (principal); Z79.01 Long term (current) use of anticoagulants
CPT/HCPCS: 36415; 85610

== ENCOUNTER → 2021-05-21 | Outpatient (CLI) | payer MEDICARE, OTHER ==
[2021-05-21 11:48] LABS: BASOPHILS % (AUTO) 1 % (0-10); EOSINOPHILS # (AUTO) 0.2 10^3/uL (0.0-0.3); EOSINOPHILS % (AUTO) 3 % (0-10); HEMATOCRIT 42 % (35-52); HEMOGLOBIN 13.1 g/dL (11.5-16.0); LYMPHOCYTES % (AUTO) 39 % (12-44); MEAN CORPUSCULAR HEMOGLOBIN 26 pg (25-34); MEAN CORPUSCULAR HGB CONC 32 g/dL (32-36); MEAN CORPUSCULAR VOLUME 83 fL (80-99); MONOCYTES # (AUTO) 0.4 10^3/uL (0.0-1.0); MONOCYTES % (AUTO) 8 % (0-12); NEUTROPHILS # (AUTO) 2.5 10^3/uL (1.8-7.8); NEUTROPHILS % (AUTO) 49 % (42-75); PLATELET COUNT 260 10^3/uL (130-400)
[2021-05-21 12:12] LABS: ALBUMIN 4.3 GM/DL (3.2-4.5); BILIRUBIN,TOTAL 0.5 MG/DL (0.1-1.0); CREATININE SERUM 0.73 MG/DL (0.60-1.30); POTASSIUM 4.1 MMOL/L (3.6-5.0); TOTAL PROTEIN 7.6 GM/DL (6.4-8.2)
== END ==
LOC: LAB 11:17
PROVIDERS: ATTEND Internal Medicine
DX: Z13.6 Encounter for screening for cardiovascular disorders (principal); E11.65 Type 2 diabetes mellitus with hyperglycemia; I10 Essential (primary) hypertension
CPT/HCPCS: 36415; 80053; 80061; 83036; 84443; 85025

== ENCOUNTER 2021-06-10 11:30 | Outpatient (RCR) | payer MEDICARE, OTHER ==
[2021-05-21 11:59] LABS: INR 2.2 (0.8-1.4); PROTHROMBIN TIME PATIENT 24.8 SEC (12.2-14.7)
[2021-05-27 11:21] LABS: INR 2.7 (0.8-1.4); PROTHROMBIN TIME PATIENT 28.8 SEC (12.2-14.7)
[2021-06-03 11:42] LABS: INR 2.7 (0.8-1.4); PROTHROMBIN TIME PATIENT 29.3 SEC (12.2-14.7)
[2021-06-10 11:53] LABS: PROTHROMBIN TIME PATIENT 22.8 SEC (12.2-14.7)
== END 2021-06-15 | disposition home or self-care (01) ==
LOC: LAB 11:30
PROVIDERS: ATTEND Nurse Practitioner Family
DX: Z51.81 Encounter for therapeutic drug level monitoring (principal); Z79.899 Other long term (current) drug therapy
CPT/HCPCS: 36415; 85610

== ENCOUNTER → 2021-06-17 | Outpatient (CLI) | payer MEDICARE, OTHER ==
[2021-06-17 10:16] LABS: INR 2.2 (0.8-1.4); PROTHROMBIN TIME PATIENT 24.6 SEC (12.2-14.7)
== END ==
LOC: LAB 09:52
PROVIDERS: ATTEND Nurse Practitioner Family
DX: Z51.81 Encounter for therapeutic drug level monitoring (principal)
CPT/HCPCS: 36415; 85610

== ENCOUNTER 2021-06-24 08:00 | Outpatient (RCR) | payer MEDICARE, OTHER ==
[2021-06-24 12:01] LABS: INR 2.1 (0.8-1.4); PROTHROMBIN TIME PATIENT 24.2 SEC (12.2-14.7)
== END 2021-07-16 | disposition home or self-care (01) ==
LOC: LAB 08:00
PROVIDERS: ATTEND Nurse Practitioner Family
DX: Z51.81 Encounter for therapeutic drug level monitoring (principal); Z79.01 Long term (current) use of anticoagulants
CPT/HCPCS: 36415; 85610

== ENCOUNTER → 2021-07-01 | Outpatient (CLI) | payer MEDICARE, OTHER ==
[2021-07-01 10:57] LABS: INR 2.1 (0.8-1.4); PROTHROMBIN TIME PATIENT 23.7 SEC (12.2-14.7)
== END ==
LOC: LABNPT 10:35
PROVIDERS: ATTEND Internal Medicine
DX: Z51.81 Encounter for therapeutic drug level monitoring (principal)
CPT/HCPCS: 85610

== ENCOUNTER → 2021-07-29 | Outpatient (CLI) | payer MEDICARE, OTHER ==
--- NOTE | 2021-07-29 13:22 | Diagnostic Imaging Report ---
INDICATION: Routine screening. COMPARISON: 07/19/2020 and 07/19/2019. TECHNIQUE: 2D and 3D bilateral screening mammography was performed with CAD. FINDINGS: Both breasts are heterogeneously dense, limiting the sensitivity of mammography. Bilateral breast calcifications appear stable. No spiculated mass or malignant-appearing microcalcifications are seen. The axillae are unremarkable. IMPRESSION: No mammographic features suspicious for malignancy are identified. ACR BI-RADS Category 2: Benign findings. Result letter will be mailed to the patient. Note: At least 10% of breast cancer is not imaged by mammography. Dictated by: Dictated on workstation # [id number]
== END ==
LOC: RAD 10:15
PROVIDERS: ATTEND Internal Medicine
DX: Z12.31 Encounter for screening mammogram for malignant neoplasm of breast (principal)
CPT/HCPCS: 77063; 77067

== ENCOUNTER 2021-08-12 10:44 | Outpatient (RCR) | payer MEDICARE, OTHER ==
[2021-08-02 11:03] LABS: INR 1.9 (0.8-1.4); PROTHROMBIN TIME PATIENT 21.9 SEC (12.2-14.7)
[2021-08-12 11:05] LABS: PROTHROMBIN TIME PATIENT 23.1 SEC (12.2-14.7)
== END 2021-08-15 | disposition home or self-care (01) ==
LOC: LAB 10:44
PROVIDERS: ATTEND Nurse Practitioner Family
DX: Z51.81 Encounter for therapeutic drug level monitoring (principal); Z79.01 Long term (current) use of anticoagulants
CPT/HCPCS: 36415; 85610

== ENCOUNTER 2021-09-09 11:40 | Outpatient (RCR) | payer MEDICARE, OTHER ==
[2021-09-09 12:18] LABS: INR 1.7 (0.8-1.4)
== END 2021-09-15 | disposition home or self-care (01) ==
LOC: LAB 11:40
PROVIDERS: ATTEND Nurse Practitioner Family
DX: Z51.81 Encounter for therapeutic drug level monitoring (principal); Z79.899 Other long term (current) drug therapy
CPT/HCPCS: 36415; 85610

== ENCOUNTER 2021-09-16 12:50 | Outpatient (RCR) | payer MEDICARE, OTHER ==
[2021-09-16 15:39] LABS: INR 2.2 (0.8-1.4); PROTHROMBIN TIME PATIENT 24.9 SEC (12.2-14.7)
== END 2021-10-16 | disposition home or self-care (01) ==
LOC: LAB 12:50
PROVIDERS: ATTEND Nurse Practitioner Family
DX: Z51.81 Encounter for therapeutic drug level monitoring (principal)
CPT/HCPCS: 36415; 85610

== ENCOUNTER 2021-10-07 11:13 | Outpatient (RCR) | payer MEDICARE, OTHER ==
[2021-10-07 12:01] LABS: PROTHROMBIN TIME PATIENT 23.1 SEC (12.2-14.7)
== END 2021-10-16 | disposition home or self-care (01) ==
LOC: LAB 11:13
PROVIDERS: ATTEND Internal Medicine Cardiovascular Disease
DX: Z51.81 Encounter for therapeutic drug level monitoring (principal)
CPT/HCPCS: 36415; 85610

== ENCOUNTER 2021-11-04 12:58 | Outpatient (RCR) | payer MEDICARE, OTHER ==
[2021-11-04 14:26] LABS: INR 2.2 (0.8-1.4); PROTHROMBIN TIME PATIENT 25.3 SEC (12.2-14.7)
== END 2021-11-15 | disposition home or self-care (01) ==
LOC: LAB 12:58
PROVIDERS: ATTEND Internal Medicine Cardiovascular Disease
DX: Z51.81 Encounter for therapeutic drug level monitoring (principal); Z79.01 Long term (current) use of anticoagulants
CPT/HCPCS: 36415; 85610

== ENCOUNTER → 2021-11-08 | Outpatient (CLI) | payer MEDICARE, OTHER ==
[2021-11-08 10:01] LABS: ALBUMIN 4.1 GM/DL (3.2-4.5); BILIRUBIN,TOTAL 0.5 MG/DL (0.1-1.0); CREATININE SERUM 0.75 MG/DL (0.60-1.30); POTASSIUM 4.4 MMOL/L (3.6-5.0); TOTAL PROTEIN 7.4 GM/DL (6.4-8.2)
== END ==
LOC: LAB 09:27
PROVIDERS: ATTEND Internal Medicine
DX: Z13.6 Encounter for screening for cardiovascular disorders (principal); E11.65 Type 2 diabetes mellitus with hyperglycemia; I10 Essential (primary) hypertension
CPT/HCPCS: 36415; 80053; 82465; 83036; 84478

== ENCOUNTER 2021-11-28 13:31 | Outpatient (RCR) | payer MEDICARE, OTHER ==
[2021-11-28 13:58] LABS: INR 2.5 (0.8-1.4); PROTHROMBIN TIME PATIENT 27.5 SEC (12.2-14.7)
== END 2021-12-16 | disposition home or self-care (01) ==
LOC: LAB 13:31
PROVIDERS: ATTEND Internal Medicine Cardiovascular Disease
DX: Z51.81 Encounter for therapeutic drug level monitoring (principal); Z79.01 Long term (current) use of anticoagulants
CPT/HCPCS: 36415; 85610

== ENCOUNTER 2021-12-26 15:43 | Outpatient (RCR) | payer MEDICARE, OTHER ==
[2021-12-26 16:14] LABS: INR 2.2 (0.8-1.4); PROTHROMBIN TIME PATIENT 25.1 SEC (12.2-14.7)
== END 2022-01-15 | disposition home or self-care (01) ==
LOC: LAB 15:43
PROVIDERS: ATTEND Internal Medicine Cardiovascular Disease
DX: Z51.81 Encounter for therapeutic drug level monitoring (principal); Z79.899 Other long term (current) drug therapy
CPT/HCPCS: 36415; 85610

== ENCOUNTER 2022-01-28 10:17 | Outpatient (RCR) | payer MEDICARE, OTHER ==
[2022-01-28 10:43] LABS: INR 2.6 (0.8-1.4); PROTHROMBIN TIME PATIENT 28.1 SEC (12.2-14.7)
== END 2022-02-15 | disposition home or self-care (01) ==
LOC: LAB 10:17
PROVIDERS: ATTEND Internal Medicine Cardiovascular Disease
DX: Z51.81 Encounter for therapeutic drug level monitoring (principal); Z79.899 Other long term (current) drug therapy
CPT/HCPCS: 36415; 85610

== ENCOUNTER → 2022-03-11 | Outpatient (CLI) | payer MEDICARE, OTHER ==
[2022-03-11 16:51] LABS: HEMATOCRIT 39 % (35-52); HEMOGLOBIN 12.1 g/dL (11.5-16.0); MEAN CORPUSCULAR HEMOGLOBIN 26 pg (25-34); MEAN CORPUSCULAR HGB CONC 31 g/dL (32-36); MEAN CORPUSCULAR VOLUME 84 fL (80-99); PLATELET COUNT 268 10^3/uL (130-400); WHITE BLOOD COUNT 5.9 10^3/uL (4.3-11.0)
[2022-03-11 17:06] LABS: ALBUMIN 3.9 GM/DL (3.2-4.5); POTASSIUM 4.2 MMOL/L (3.6-5.0)
[2022-03-11 17:07] LABS: CALCIUM 9.6 MG/DL (8.5-10.1)
[2022-03-11 17:08] LABS: TOTAL PROTEIN 7.2 GM/DL (6.4-8.2)
[2022-03-11 17:10] LABS: BILIRUBIN,TOTAL 0.2 MG/DL (0.1-1.0)
[2022-03-11 17:11] LABS: ERYTHROCYTE SEDIMENTATION RATE 23 MM/HR (0-30)
[2022-03-11 17:12] LABS: CREATININE SERUM 0.75 MG/DL (0.60-1.30)
--- NOTE | 2022-03-11 18:12 | Diagnostic Imaging Report ---
INDICATION: Dyspnea COMPARISON: 10/23/2012 TECHNIQUE: Frontal and lateral radiographs of the chest dated 03/11/2022. FINDINGS: Septal closure device is in place. The cardiac silhouette is within normal limits in size. No significant pulmonary vascular congestion. Minimal linear scarring and/or atelectasis within the left midlung. The lungs otherwise appear clear. No pleural effusion. No pneumothorax. Scattered osseous degenerative changes without acute osseous abnormality. IMPRESSION: Minimal scarring and/or atelectasis within the left midlung. Additional postsurgical and chronic findings as above. Dictated by: Dictated on workstation # [id number]
== END ==
LOC: RAD 16:32
PROVIDERS: ATTEND Internal Medicine
DX: I50.9 Heart failure, unspecified (principal); J18.9 Pneumonia, unspecified organism
CPT/HCPCS: 36415; 71046; 80053; 83605; 83880; 85027; 85652

== ENCOUNTER 2022-03-17 16:02 | Outpatient (RCR) | payer MEDICARE, OTHER ==
[2022-03-04 14:07] LABS: INR 1.6 (0.8-1.4); PROTHROMBIN TIME PATIENT 19.4 SEC (12.2-14.7)
[2022-03-11 12:30] LABS: INR 2.3 (0.8-1.4)
[2022-03-17 16:26] LABS: INR 2.3 (0.8-1.4); PROTHROMBIN TIME PATIENT 25.7 SEC (12.2-14.7)
== END 2022-03-18 | disposition home or self-care (01) ==
LOC: LAB 16:02
PROVIDERS: ATTEND Internal Medicine Cardiovascular Disease
DX: Z01.89 Encounter for other specified special examinations (principal)
CPT/HCPCS: 36415; 85610

== ENCOUNTER 2022-03-25 10:00 | Day surgery (SDC) | payer MEDICARE, OTHER ==
[~2022-03-25] VITALS: Ht 170.2 cm; Wt 98.9 kg
[2022-03-25] VITALS (8 sets, daily range): BP systolic 111–133; BP diastolic 63–93
[2022-03-25 08:29] LABS: HEMATOCRIT 44 % (35-52); HEMOGLOBIN 13.9 g/dL (11.5-16.0); MEAN CORPUSCULAR HEMOGLOBIN 26 pg (25-34); MEAN CORPUSCULAR HGB CONC 31 g/dL (32-36); MEAN CORPUSCULAR VOLUME 84 fL (80-99); MEAN PLATELET VOLUME 10.2 fL (9.0-12.2); PLATELET COUNT 271 10^3/uL (130-400); WHITE BLOOD COUNT 6.3 10^3/uL (4.3-11.0)
[2022-03-25 08:42] LABS: INR 2.2 (0.8-1.4); PROTHROMBIN TIME PATIENT 25.2 SEC (12.2-14.7)
[2022-03-25 08:51] LABS: ALBUMIN 4.5 GM/DL (3.2-4.5); BILIRUBIN,TOTAL 0.6 MG/DL (0.1-1.0); CALCIUM 10.4 MG/DL (8.5-10.1); CREATININE SERUM 0.72 MG/DL (0.60-1.30); POTASSIUM 3.8 MMOL/L (3.6-5.0); TOTAL PROTEIN 8.6 GM/DL (6.4-8.2)
--- NOTE | 2022-03-25 09:25 | Anesthesia-General Post-Op ---
MAC Patient Condition Mental Status/LOC: Same as Preop Cardiovascular: Satisfactory Nausea/Vomiting: Absent Respiratory: Satisfactory Pain: Controlled Complications: Absent Post Op Complications Complications None Follow Up Care/Instructions Patient Instructions None needed. Anesthesiology Discharge Order Discharge Order Patient is doing well, no complaints, stable vital signs, no apparent adverse anesthesia problems. No complications reported per nursing. SANDRA FUENTES CRNA Mar 25, 2022 09:25
[~2022-03-25 10:00] MED LIST changes: +HYDR-3817 PO; +NS IV 1000 ML 1,000 ML IV SCH; +NS IV 1000 ML 1,000 ML ONE; +proPOfol 200 MG/20 ML (DIPRIVAN) VIAL IV ONE
--- NOTE | 2022-03-25 17:05 | OPERATIVE REPORT ---
DATE OF SERVICE: 03/25/2022 PREOPERATIVE DIAGNOSIS: Atrial fibrillation. POSTOPERATIVE DIAGNOSIS: Sinus rhythm. PROCEDURE: External electrical cardioversion. The patient is a 72-year-old lady who has paroxysmal atrial fibrillation from which she is quite symptomatic. Following atrial fibrillation ablation a few months ago, she has had recurrence of atrial fibrillation. She is chronically anticoagulated and has not had any interruptions in her chronic anticoagulation. External electrical cardioversion was carried out today after having obtained an informed consent. DESCRIPTION OF PROCEDURE: [facility] The nurse bmw service technician provided short-acting anesthesia. 120 joules of synchronized biphasic shock was delivered through external patches, which converted atrial fibrillation to sinus rhythm and she tolerated the procedure well. Job ID: [id number] DocumentID: [id number] Dictated Date: 03/25/2022 09:31:59 Carton Gluing Machine Operator Date: 03/25/2022 17:02:00 Dictated By: MERCY GOMES MD; BERTRAND; FACP; FACC;
== END 2022-03-25 10:10 | disposition home or self-care (01) ==
LOC: CATH 10:00
PROVIDERS: ATTEND Internal Medicine Cardiovascular Disease
DX: I48.0 Paroxysmal atrial fibrillation (principal); D68.52 Prothrombin gene mutation; E66.9 Obesity, unspecified; E21.3 Hyperparathyroidism, unspecified; G47.33 Obstructive sleep apnea (adult) (pediatric); Z96.653 Presence of artificial knee joint, bilateral; Z79.01 Long term (current) use of anticoagulants; Z79.899 Other long term (current) drug therapy; Z95.818 Presence of other cardiac implants and grafts; Z68.34 Body mass index [BMI] 34.0-34.9, adult
CPT/HCPCS: 36415; 80053; 80061; 85027; 85610; 85730; 87081; 92960; 93005

== ENCOUNTER → 2022-04-10 | Outpatient (CLI) | payer MEDICARE, OTHER ==
[~2022-04-10] MED LIST changes: -NS IV 1000 ML 1,000 ML IV SCH; -NS IV 1000 ML 1,000 ML ONE; -proPOfol 200 MG/20 ML (DIPRIVAN) VIAL IV ONE
== END ==
LOC: LAB 11:17
DX: I48.19 Other persistent atrial fibrillation (principal)
CPT/HCPCS: 36415; 84443

== ENCOUNTER 2022-04-24 11:07 | Outpatient (RCR) | payer MEDICARE, OTHER ==
[2022-04-24 11:40] LABS: INR 2.2 (0.8-1.4); PROTHROMBIN TIME PATIENT 24.6 SEC (12.2-14.7)
== END 2022-05-16 | disposition home or self-care (01) ==
LOC: LAB 11:07 → EDSTATUS 11:09
PROVIDERS: ATTEND Internal Medicine Cardiovascular Disease
DX: I48.0 Paroxysmal atrial fibrillation (principal)
CPT/HCPCS: 36415; 85610

== ENCOUNTER 2022-05-07 00:50 | Emergency (ER) | payer MEDICARE, OTHER ==
[~2022-05-07] VITALS: Ht 170 cm; Wt 98.8 kg
--- NOTE | 2022-05-07 01:46 | ED Cardiac General ---
History of Present Illness General Stated Complaint: A-FIB Source: patient Exam Limitations: no limitations History of Present Illness Date Seen by Provider: May 07, 2022 Time Seen by Provider: 00:55 Initial Comments 72yoF with PMH most notably for pAfib on Warfarin (s/p ablation) and HTN coming in feeling like her A-fib is back with her heart rate going fast with palpitations. Started about an hour prior to arrival. She says she had a very active day. She did take an Mucinex earlier on in the night. Denies being ill recently, no fever, nausea, vomiting, diarrhea, and has been eating and drinking normally. Denies any chest pain or shortness of breath associated with this. Takes Cardizem 240 mg in the morning and on and 20 mg at night. She did take her nighttime dose at 6 PM. She took an extra 240 mg pill around 12:20am. Otherwise denying any other acute complaints. Allergies and Home Medications Allergies Coded Allergies: No Known Drug Allergies (Unverified , 07/05/15) Patient Home Medication List Home Medication List Reviewed: Yes Acetaminophen (Tylenol Extra Strength Arthrit) 500 Mg Tablet, 500-1,000 MG PO Q6 H PRN for PAIN, (Reported) Entered as Reported by: AMISH COBURN on 02/17/13 0909 Cholecalciferol (Vitamin D3) (Vitamin D) 1,000 Unit Capsule, 1,000 UNIT PO DAILY, (Reported) Entered as Reported by: COLLEEN WAGNER on 07/05/15 1005 Diltiazem HCl (Diltiazem ER) 240 Mg Capsule.er, 240 MG PO DAILY, (Reported) Entered as Reported by: [place] CANELA on 06/12/20 1000 Diltiazem HCl (Diltiazem ER) 120 Mg Capsule.er, 120 MG PO HS, (Reported) Entered as Reported by: [place] CANELA on 06/12/20 1000 Hydrocodone/Acetaminophen (Hydrocodone-Acetamin 7.5-325) 7.5 Mg-325 Mg Tablet, 1 EACH PO TID PRN for PAIN-MODERATE (5-7), (Reported) Entered as Reported by: MARVEL BEGUM on 03/25/22 0848 L.acidoph & Paracasei,B.lactis (Probiotic) 1 Each Capsule, 1 EACH PO DAILY, (Reported) Entered as Reported by: MARVEL BEGUM on 02/01/21 0808 Metformin HCl (Metformin HCl) 500 Mg Tablet, 500 MG PO BID, (Reported) Entered as Reported by: FELIPE PEREZ on 10/29/14 1654 Vitamin B Complex (Vitamin B Complex) 1 Each Capsule, 1 CAP PO DAILY, (Reported) Entered as Reported by: HAO LYNN on 11/01/14 1403 Warfarin Sodium (Jantoven) 5 Mg Tablet, 5 MG PO ,, (Reported) Entered as Reported by: COLLEEN WAGNER on 07/05/15 1005 Warfarin Sodium (Warfarin Sodium) 5 Mg Tablet, 10 MG PO SuTuWeSa, (Reported) Entered as Reported by: TARA GONZALES on 11/06/15 1231 Review of Systems Review of Systems Constitutional: No fever EENTM: No Symptoms Reported Respiratory: No Symptoms Reported Cardiovascular: See HPI Gastrointestinal: No Symptoms Reported Genitourinary: No Symptoms Reported Musculoskeletal: no symptoms reported Skin: no symptoms reported Past Skbixiy-Flcctp-Rkcamb Hx Patient Social History Tobacco Use?: No Immunizations Up To Date Tetanus Booster (TDap): More than 5yrs PED Vaccines UTD: No Seasonal Allergies Seasonal Allergies: No Past Medical History Eye Surgery, Hysterectomy, Joint Replacement, Orthopedic Respiratory: Yes (PULMONARY HTN-IMPROVED WITH ASD REPAIR) Sleep Apnea Currently Using CPAP: Yes Cardiac: Yes (ASD--S/P REPAIR 11/2011, SUPERFICIAL THROMBOPHLEBITIS, CARDIVERSION 2015) Atrial Fibrillation, Heart Murmur, High Cholesterol, Hypertension Neurological: No Reproductive Disorders: No Female Reproductive Disorders: Denies FRENCH BINDER History: Hysterectomy Sexually Transmitted Disease: No HIV/AIDS: No Genitourinary: No Gastrointestinal: No Polyps Parathyroid Disease Cataract Loss of Vision: Denies Hearing Impairment: Denies Cancer: No Anxiety, Depression 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 5.0oz. 97.298289jv; 34.14 BMI Method:Stated General Appearance: No Apparent Distress, Anxious HEENT: PERRL/EOMI, Normal ENT Inspection, Pharynx Normal Neck: Full Range of Motion, Normal Inspection, Non Tender, Supple Respiratory: Chest Non Tender, Lungs Clear, Normal Breath Sounds, No Accessory Muscle Use, No Respiratory Distress Cardiovascular: No Edema, Normal Peripheral Pulses, Irregularly Irregular, Tachycardia Gastrointestinal: Normal Bowel Sounds, Non Tender, Soft; No Distended, No Guarding Extremity: Normal Capillary Refill, Normal Inspection, Normal Range of Motion, Non Tender, No Calf Tenderness, No Pedal Edema Neurologic/Psychiatric: Alert, No Motor/Sensory Deficits, Normal Mood/Affect Skin: Normal Color, Warm/Dry Progress/Results/Core Measures Results/Orders My Orders Orders - MARIO GROVER MD Ekg Tracing (05/07/22 01:51) Cbc With Automated Diff (05/07/22 01:51) Comprehensive Metabolic Panel (05/07/22 01:51) Bnp Jaclyn (05/07/22 01:51) Protime With Inr (05/07/22 01:51) Partial Thromboplastin Time (05/07/22 01:51) Troponin I Jaclyn (05/07/22 01:51) Chest 1 View, Ap/Pa Only (05/07/22 01:51) Lactated Ringers (Lr 1000 Ml Iv Solution (05/07/22 02:00) Diltiazem Injection (Cardizem Injection) (05/07/22 02:00) Monitor-Rhythm Ecg Trace Only (05/07/22 01:51) Ed Iv/Invasive Line Start (05/07/22 01:56) Potassium Chloride (Tablet) (K Dur Table (05/07/22 02:45) Magnesium 1 Gm/100 Ml Ivpb (Magnesium Hinojosa (05/07/22 02:36) Diltiazem Injection (Cardizem Injection) (05/07/22 02:45) Medications Given in ED Current Medications Medications Dose Ordered Sig/Christina Route Start Time Stop Time Status Last Admin Dose Admin Diltiazem HCl 20 mg ONCE ONCE IVP 05/07/22 02:00 05/07/22 02:01 DC 05/07/22 01:10 20 MG Diltiazem HCl 20 mg ONCE ONCE IVP 05/07/22 02:45 05/07/22 02:46 DC 05/07/22 02:48 20 MG Lactated Ringer's 1,000 ml @ 0 mls/hr Q0M ONCE IV 05/07/22 02:00 05/07/22 02:01 DC 05/07/22 01:10 0 MLS/HR Potassium Chloride 40 meq ONCE ONCE PO 05/07/22 02:45 05/07/22 02:46 DC 05/07/22 02:48 40 MEQ Vital Signs/I&O 05/07/22 05/07/22 05/07/22 00:50 01:10 02:48 Temp 36.1 Pulse 147 147 117 Resp 13 B/P (MAP) 176/94 (121) 176/94 159/72 Pulse Ox 97 O2 Delivery Room Air Progress Progress Note : Progress Note 72yoF presenting for A-fib with RVR. ABCs were intact and blood pressure was stable on presentation. She was in RVR with heart rates 120s to 140s on arrival. Given she had just taken the oral Cardizem, we will go ahead and bolus her IV, but will not do a diltiazem drip at this time. Also given a bolus of IV fluids. EKG with no STEMI on my interpretation. Basic labs otherwise ordered as well as cardiac biomarkers. Chest x-ray ordered as well and on my interpretation no obvious pneumonia, pneumothorax, normal cardiac silhouette. White blood cell count normal, hemoglobin normal, troponin negative, BNP normal, creatinine normal, potassium low normal at 3.5. Patient was given oral potassium and IV magnesium. Given repeat Cardizem IV bolus. Monitored for some time after heart rate mostly in the 90s in A-fib. Patient asymptomatic at this time blood pressure normal. She should follow-up with cardiology as an outpatient. I believe she is otherwise stable for discharge. She was sent home with strict return precautions. Initial ECG Impression Date: May 07, 2022 Initial ECG Impression Time: 00:57 Initial ECG Rate: 134 Initial ECG Rhythm: A Fib/Flutter Comment Narrow QRS, normal axis, ST depressions in the inferior and lateral leads that is likely rate related, no STEMI Appears similar to prior EKG when she was in A-fib with RVR Diagnostic Imaging Diagonstic Imaging: Xray (chest) Departure Impression Primary Impression: Atrial fibrillation with RVR Disposition: 01 HOME, SELF-CARE Condition: Improved Departure-Patient Inst. Decision time for Depature: 03:10 Referrals: MOOKIE DIAS DO (PCP/Family) Primary Care Physician Patient Instructions: Atrial Fibrillation (DC) Add. Discharge Instructions: Your heart rate was in the 140s in A-fib on arrival. Majority of the time prior to discharge its around the 80s to low 100s which is much improved. Please call your media center specialist in the morning see if they want to change any medications. You have any severe chest pain, severe shortness of breath, or any other concerns then please come back to the ER. MARIO GROVER MD May 07, 2022 01:46
[2022-05-07] MEDS ORDERED: LACTATED RINGERS 1,000 ML IV ONE (02:00)
[2022-05-07] MEDS ORDERED: MAGNESIUM 1 GM/100 ML IVPB 100 ML IV STA (02:36)
[2022-05-07] MEDS ORDERED: KCL 20 MEQ TAB (K-DUR) PO ONE (02:45)
[2022-05-07 03:14] VITALS: BP 162/71
[2022-05-07 05:17] LABS: ALANINE AMINOTRANSFERASE 18 U/L (0-55); ALBUMIN 4.4 GM/DL (3.2-4.5); ALKALINE PHOSPHATASE 88 U/L (40-136); BILIRUBIN,TOTAL 0.4 MG/DL (0.1-1.0); BUN/CREATININE RATIO 23; CALCIUM 10.2 MG/DL (8.5-10.1); CARBON DIOXIDE 22 MMOL/L (21-32); CHLORIDE 107 MMOL/L (98-107); CREATININE SERUM 0.71 MG/DL (0.60-1.30); GFR ESTIMATED 89; GLUCOSE 151 MG/DL (70-105); POTASSIUM 3.5 MMOL/L (3.6-5.0); SODIUM 140 MMOL/L (135-145); TOTAL PROTEIN 8.1 GM/DL (6.4-8.2)
[2022-05-07 05:20] LABS: HEMATOCRIT 39 % (35-52); HEMOGLOBIN 12.6 g/dL (11.5-16.0); MEAN CORPUSCULAR HEMOGLOBIN 26 pg (25-34); MEAN CORPUSCULAR VOLUME 81 fL (80-99); PROTHROMBIN TIME PATIENT 22.9 SEC (12.2-14.7)
[2022-05-07 05:21] LABS: BASOPHILS % (AUTO) 0 % (0-10); EOSINOPHILS # (AUTO) 0.2 10^3/uL (0.0-0.3); EOSINOPHILS % (AUTO) 3 % (0-10); LYMPHOCYTES # (AUTO) 2.6 X 10^3 (1.0-4.0); LYMPHOCYTES % (AUTO) 29 % (12-44); MEAN CORPUSCULAR HGB CONC 32 g/dL (32-36); MONOCYTES # (AUTO) 0.7 X 10^3 (0.0-1.0); MONOCYTES % (AUTO) 8 % (0-12); NEUTROPHILS # (AUTO) 5.4 X 10^3 (1.8-7.8); NEUTROPHILS % (AUTO) 60 % (42-75); PLATELET COUNT 237 10^3/uL (130-400)
--- NOTE | 2022-05-07 06:29 | Diagnostic Imaging Report ---
INDICATION: Atrial fibrillation EXAMINATION: Chest 05/07/2022 COMPARISON: 10/23/12 FINDINGS: Perihilar opacities noted bilaterally likely due to congestion. Heart normal. Vague atelectasis or infiltrate in the left mid lung is questioned. No effusions, no pneumothorax. IMPRESSION: 1. Pulmonary vascular congestion with questionable atelectasis or early infiltrate in the left midlung. Dictated by: Dictated on workstation # [id number]
== END 2022-05-07 03:18 | disposition home or self-care (01) ==
LOC: EDUNIT# 00:50 → ER 00:51
DX: I48.0 Paroxysmal atrial fibrillation (principal); I10 Essential (primary) hypertension; Z79.01 Long term (current) use of anticoagulants; Z79.899 Other long term (current) drug therapy
CPT/HCPCS: 36415; 71045; 80053; 83880; 84484; 85025; 85610; 85730; 93005; 93041

== ENCOUNTER → 2022-05-13 | Outpatient (CLI) | payer MEDICARE, OTHER ==
[~2022-05-13] MED LIST changes: +REGADENOSON 0.4 MG/5 ML SYR (LEXISCAN) IV ONE
[2022-05-13 13:21] VITALS: BP 147/81
--- NOTE | 2022-05-13 20:47 | STRESS TEST ---
DATE OF SERVICE: 05/13/2022 RESTING AND POST REGADENOSON TECHNETIUM-99M TETROFOSMIN SPECT CT IMAGING ORDERING PHYSICIAN: Dr. Francis. CLINICAL DIAGNOSIS: Paroxysmal atrial fibrillation. Baseline images were carried out after injection of 10.49 mCi of technetium-99m tetrofosmin. This was followed by 0.4 mg regadenoson and 31.3 mCi of technetium-99m tetrofosmin for stress imaging. The electrocardiogram showed atrial fibrillation at baseline. It did not change significantly with the regadenoson infusion. The patient reported some shortness of breath and dizziness following regadenoson infusion, which resolved in a few minutes. Overall, she tolerated the procedure well. Review of images at rest and following stress indicates somewhat diminished count uptake in a localized portion of the anterolateral wall, both at rest and following regadenoson infusion. This is likely breast artifact. Gated images showed normal global left ventricular systolic function with normal regional wall motion including the anterolateral wall. Left ventricular ejection fraction is calculated to be 66%. CONCLUSIONS: 1. No evidence of significant myocardial ischemia or infarction on this study. 2. Normal regional wall motion. 3. Normal global left ventricular systolic function with a calculated ejection fraction of 66%. Job ID: [id number] DocumentID: [id number] Dictated Date: 05/13/2022 18:22:21 Hr Operations Advisor Date: 05/13/2022 20:45:00 Dictated By: MERCY FRANCIS MD; BERTRAND; FACP; FACC; GRANT
== END ==
LOC: CARD 11:56
PROVIDERS: ATTEND Internal Medicine Cardiovascular Disease
DX: I48.0 Paroxysmal atrial fibrillation (principal)
CPT/HCPCS: 78452; 93017; A9502

== ENCOUNTER 2022-05-19 11:05 | Outpatient (RCR) | payer MEDICARE, OTHER ==
[~2022-05-19 11:05] MED LIST changes: -REGADENOSON 0.4 MG/5 ML SYR (LEXISCAN) IV ONE
[2022-05-19 11:31] LABS: INR 2.3 (0.8-1.4); PROTHROMBIN TIME PATIENT 25.9 SEC (12.2-14.7)
[2022-06-10] MEDS ORDERED: POLY30DR6 OP (08:40)
[2022-06-10] MEDS ORDERED: VITA1TAB17 PO (08:40)
[2022-06-10] MEDS ORDERED: FLUT16SP22 NS (08:40)
[2022-06-10] MEDS ORDERED: ACET-2267 PO (08:40)
[2022-06-10] MEDS ORDERED: NFIPRATRNS NS (08:40)
[2022-06-10] MEDS ORDERED: CHOL200059 PO (08:40)
[2022-06-10] MEDS ORDERED: METO50TA7 PO (08:40)
[2022-06-10] MEDS ORDERED: FLEC100T PO (08:40)
== END 2022-06-15 | disposition home or self-care (01) ==
LOC: LAB 11:05
PROVIDERS: ATTEND Internal Medicine Cardiovascular Disease
DX: I48.0 Paroxysmal atrial fibrillation (principal)
CPT/HCPCS: 36415; 85610

== ENCOUNTER 2022-06-10 07:09 | Day surgery (SDC) | payer MEDICARE, OTHER ==
[~2022-06-10] VITALS: Ht 170 cm; Wt 100.7 kg
[2022-06-10] MEDS ORDERED: NS IV 1000 ML 1,000 ML IV ONE (07:45)
[2022-06-10] MEDS ORDERED: NS IV 1000 ML 1,000 ML ONE (07:53)
[2022-06-10 08:20] VITALS: BP 126/97
[2022-06-10 08:24] LABS: HEMATOCRIT 41 % (35-52); HEMOGLOBIN 12.7 g/dL (11.5-16.0); MEAN CORPUSCULAR HEMOGLOBIN 26 pg (25-34); MEAN CORPUSCULAR HGB CONC 31 g/dL (32-36); MEAN CORPUSCULAR VOLUME 83 fL (80-99); MEAN PLATELET VOLUME 10.1 fL (9.0-12.2); PLATELET COUNT 236 10^3/uL (130-400); WHITE BLOOD COUNT 5.4 10^3/uL (4.3-11.0)
[2022-06-10] MEDS ORDERED: proPOfol 200 MG/20 ML (DIPRIVAN) VIAL IV ONE (08:27)
--- NOTE | 2022-06-10 08:33 | Anesthesia-General Post-Op ---
MAC Patient Condition Mental Status/LOC: Same as Preop Cardiovascular: Satisfactory Nausea/Vomiting: Absent Respiratory: Satisfactory Pain: Controlled Complications: Absent Post Op Complications Complications None Follow Up Care/Instructions Patient Instructions None needed. Anesthesiology Discharge Order Discharge Order Patient is doing well, no complaints, stable vital signs, no apparent adverse anesthesia problems. No complications reported per nursing. MARCO MEDEIROS CRNA Jun 10, 2022 08:33
[2022-06-10 08:35] LABS: INR 1.9 (0.8-1.4); PROTHROMBIN TIME PATIENT 22.1 SEC (12.2-14.7)
[2022-06-10] MEDS ORDERED: CHOL200059 PO ×2 (08:40)
[2022-06-10] MEDS ORDERED: FLEC100T PO ×2 (08:40)
[2022-06-10] MEDS ORDERED: METO50TA7 PO ×2 (08:40)
[2022-06-10] MEDS ORDERED: POLY30DR6 OP ×2 (08:40)
[2022-06-10] MEDS ORDERED: FLUT16SP22 NS ×2 (08:40)
[2022-06-10] MEDS ORDERED: NFIPRATRNS NS ×2 (08:40)
[2022-06-10] MEDS ORDERED: ACET-2267 PO ×2 (08:40)
[2022-06-10] MEDS ORDERED: VITA1TAB17 PO ×2 (08:40)
[2022-06-10 08:43] LABS: ALBUMIN 4.2 GM/DL (3.2-4.5); BILIRUBIN,TOTAL 0.4 MG/DL (0.1-1.0); CREATININE SERUM 0.79 MG/DL (0.60-1.30); POTASSIUM 4.5 MMOL/L (3.6-5.0); TOTAL PROTEIN 7.5 GM/DL (6.4-8.2)
[2022-06-10] MEDS ORDERED: MIDAZOLAM 2 MG/2 ML (VERSED) VIAL ONE (08:43)
[2022-06-10 09:21] LABS: INR 2.1 (0.8-1.4)
[2022-06-10 09:30] VITALS: BP 139/90
[2022-06-10 09:35] VITALS: BP 133/88
[2022-06-10 09:40] VITALS: BP 144/85
[2022-06-10 09:45] VITALS: BP 127/70
[2022-06-10 10:00] VITALS: BP 125/77
--- NOTE | 2022-06-10 16:32 | OPERATIVE REPORT ---
DATE OF SERVICE: 06/10/2022 PREOPERATIVE DIAGNOSIS: Atrial fibrillation. POSTOPERATIVE DIAGNOSIS: Sinus rhythm. PROCEDURE: External electrical cardioversion. INDICATIONS: The patient is a 72-year-old lady who has paroxysmal atrial fibrillation. She is chronically anticoagulated. The calculated INR has been therapeutic. INR today was 2.1. External electrical cardioversion was carried out after having obtained informed consent. The nurse matrix inspector provided short-acting anesthesia. 120 joules of synchronized biphasic shock was delivered through external patches, which converted atrial fibrillation to sinus rhythm. She tolerated the procedure well. Job ID: [id number] DocumentID: [id number] Dictated Date: 06/10/2022 09:39:35 [employer] Dealer Date: 06/10/2022 16:30:00 Dictated By: MERCY GOMES MD; BERTRAND; FACP; FACC;
== END 2022-06-10 10:25 | disposition home or self-care (01) ==
LOC: CATH 07:09
PROVIDERS: ATTEND Internal Medicine Cardiovascular Disease
DX: I48.0 Paroxysmal atrial fibrillation (principal); E66.9 Obesity, unspecified; M19.90 Unspecified osteoarthritis, unspecified site; D68.52 Prothrombin gene mutation; E21.3 Hyperparathyroidism, unspecified; G47.33 Obstructive sleep apnea (adult) (pediatric); Z68.34 Body mass index [BMI] 34.0-34.9, adult; Z95.818 Presence of other cardiac implants and grafts; Z96.653 Presence of artificial knee joint, bilateral; Z86.711 Personal history of pulmonary embolism; Z79.01 Long term (current) use of anticoagulants; Z79.899 Other long term (current) drug therapy
CPT/HCPCS: 36415; 80053; 80061; 85027; 85610; 85730; 87081; 93005

== ENCOUNTER → 2022-06-16 | Outpatient (CLI) | payer MEDICARE, OTHER ==
[~2022-06-16] MED LIST changes: +ACET-2267 PO; +CHOL200059 PO; +FLEC100T PO; +FLUT16SP22 NS; +METO50TA7 PO; +NFIPRATRNS NS; +POLY30DR6 OP; +VITA1TAB17 PO
[2022-06-16 10:06] LABS: BASOPHILS % (AUTO) 1 % (0-10); EOSINOPHILS # (AUTO) 0.2 10^3/uL (0.0-0.3); EOSINOPHILS % (AUTO) 4 % (0-10); HEMATOCRIT 39 % (35-52); HEMOGLOBIN 12.2 g/dL (11.5-16.0); LYMPHOCYTES # (AUTO) 1.6 10^3/uL (1.0-4.0); LYMPHOCYTES % (AUTO) 29 % (12-44); MEAN CORPUSCULAR HEMOGLOBIN 26 pg (25-34); MEAN CORPUSCULAR HGB CONC 31 g/dL (32-36); MEAN CORPUSCULAR VOLUME 84 fL (80-99); MEAN PLATELET VOLUME 10.4 fL (9.0-12.2); MONOCYTES # (AUTO) 0.4 10^3/uL (0.0-1.0); MONOCYTES % (AUTO) 8 % (0-12); NEUTROPHILS # (AUTO) 3.3 10^3/uL (1.8-7.8); NEUTROPHILS % (AUTO) 59 % (42-75); PLATELET COUNT 258 10^3/uL (130-400); WHITE BLOOD COUNT 5.7 10^3/uL (4.3-11.0)
[2022-06-16 10:18] LABS: POTASSIUM 4.3 MMOL/L (3.6-5.0)
[2022-06-16 10:19] LABS: ALBUMIN 4.1 GM/DL (3.2-4.5)
[2022-06-16 10:20] LABS: CALCIUM 10.1 MG/DL (8.5-10.1)
[2022-06-16 10:21] LABS: TOTAL PROTEIN 7.7 GM/DL (6.4-8.2)
[2022-06-16 10:23] LABS: BILIRUBIN,TOTAL 0.5 MG/DL (0.1-1.0)
[2022-06-16 10:25] LABS: CREATININE SERUM 0.72 MG/DL (0.60-1.30)
== END ==
LOC: LAB 09:32
PROVIDERS: ATTEND Internal Medicine
DX: Z13.6 Encounter for screening for cardiovascular disorders (principal); E11.65 Type 2 diabetes mellitus with hyperglycemia; I10 Essential (primary) hypertension
CPT/HCPCS: 36415; 80053; 80061; 83036; 84443; 85025

== ENCOUNTER 2022-07-02 09:25 | Outpatient (RCR) | payer MEDICARE, OTHER ==
[2022-07-01 14:59] LABS: INR 1.5 (0.8-1.4); PROTHROMBIN TIME PATIENT 18.3 SEC (12.2-14.7)
[2022-07-02 09:39] LABS: INR 1.6 (0.8-1.4); PROTHROMBIN TIME PATIENT 19.5 SEC (12.2-14.7)
[2022-07-08] MEDS ORDERED: DILT180C84 PO (10:47)
[2022-07-08] MEDS ORDERED: FLEC150T2 PO (10:47)
[2022-07-09] MEDS ORDERED: CEFU500T63 PO (08:02)
[2022-07-16 10:25] LABS: INR 1.7 (0.8-1.4); PROTHROMBIN TIME PATIENT 19.5 SEC (12.2-14.7)
== END 2022-07-16 | disposition home or self-care (01) ==
LOC: LAB 09:25
PROVIDERS: ATTEND Internal Medicine Cardiovascular Disease
DX: I48.0 Paroxysmal atrial fibrillation (principal)
CPT/HCPCS: 36415; 85610

== ENCOUNTER → 2022-07-02 | Outpatient (CLI) | payer MEDICARE, OTHER ==
[2022-07-02 11:25] LABS: HEMATOCRIT 41 % (35-52); MEAN CORPUSCULAR HEMOGLOBIN 26 pg (25-34); MEAN CORPUSCULAR HGB CONC 31 g/dL (32-36); MEAN CORPUSCULAR VOLUME 82 fL (80-99); MEAN PLATELET VOLUME 9.8 fL (9.0-12.2); PLATELET COUNT 267 10^3/uL (130-400); WHITE BLOOD COUNT 6.2 10^3/uL (4.3-11.0)
[2022-07-02 11:42] LABS: CALCIUM 10.3 MG/DL (8.5-10.1); CREATININE SERUM 0.77 MG/DL (0.60-1.30); POTASSIUM 4.5 MMOL/L (3.6-5.0)
== END ==
LOC: LAB 11:13
PROVIDERS: ATTEND Internal Medicine Cardiovascular Disease
DX: I48.19 Other persistent atrial fibrillation (principal)
CPT/HCPCS: 36415; 80048; 83735; 85027

== ENCOUNTER 2022-07-08 10:08 | Day surgery (SDC) | payer MEDICARE, OTHER ==
[~2022-07-08] VITALS: Ht 170.2 cm; Wt 103.8 kg
[2022-07-08] VITALS (8 sets, daily range): BP systolic 140–179; BP diastolic 64–96
[2022-07-08] MEDS ORDERED: NS IV 1000 ML 1,000 ML IV ONE (10:15)
[2022-07-08] MEDS ORDERED: LIDOCAINE 1% INJ 20 ML VIAL ONE (10:17)
[2022-07-08] MEDS ORDERED: ceFAZolin INJECTION 1,000 MG ONE (10:17)
[2022-07-08] MEDS ORDERED: NS IV 1000 ML 2,000 ML ONE (10:17)
[2022-07-08] MEDS ORDERED: HEParin (CATH LAB) 1,000 ML IV ONE (10:17)
[2022-07-08 10:38] LABS: HEMATOCRIT 41 % (35-52); HEMOGLOBIN 13.2 g/dL (11.5-16.0); MEAN CORPUSCULAR HEMOGLOBIN 26 pg (25-34); MEAN CORPUSCULAR HGB CONC 32 g/dL (32-36); MEAN CORPUSCULAR VOLUME 82 fL (80-99); MEAN PLATELET VOLUME 10.3 fL (9.0-12.2); PLATELET COUNT 231 10^3/uL (130-400); WHITE BLOOD COUNT 6.1 10^3/uL (4.3-11.0)
[2022-07-08] MEDS ORDERED: FLEC150T2 PO (10:47)
[2022-07-08] MEDS ORDERED: DILT180C84 PO (10:47)
[2022-07-08 10:50] LABS: INR 1.3 (0.8-1.4); PROTHROMBIN TIME PATIENT 16.2 SEC (12.2-14.7)
[2022-07-08 11:00] LABS: ALBUMIN 4.3 GM/DL (3.2-4.5); BILIRUBIN,TOTAL 0.6 MG/DL (0.1-1.0); CALCIUM 9.9 MG/DL (8.5-10.1); CREATININE SERUM 0.76 MG/DL (0.60-1.30); TOTAL PROTEIN 7.7 GM/DL (6.4-8.2)
[2022-07-08] MEDS ORDERED: fentaNYL INJ 100 MCG/2 ML AMP ONE ×2 (14:05→15:11)
[2022-07-08] MEDS ORDERED: MIDAZOLAM 5 MG/5 ML (VERSED) VIAL ONE ×2 (14:05→15:11)
[2022-07-08] MEDS ORDERED: diphenhydrAMINE 50 MG/ML INJ (BENADRYL) ONE (16:11)
[2022-07-08] MEDS ORDERED: PATIENT MAY USE OWN MEDS, ALL PO SCH (17:15)
[2022-07-08] MEDS ORDERED: ACETAMINOPHEN 325 MG TABLET PO PRN (17:15)
[2022-07-08] MEDS ORDERED: oxyCODONE/APAP 7.5-325 MG (PERCOCET 7.5) TABLET PO PRN (17:15)
[2022-07-08] MEDS ORDERED: NS IV 1000 ML 1,000 ML IV SCH (17:15)
--- NOTE | 2022-07-08 17:36 | Diagnostic Imaging Report ---
EXAMINATION: Chest 2 view HISTORY: post cardiac device placement COMPARISON: 03/11/2022 FINDINGS: Heart size is stable with prominence of pulmonary vasculature. A left-sided cardiac device has been placed. There are mild interstitial opacities greatest within the lower lungs. No significant pleural effusion or pneumothorax. The osseous structures are intact. IMPRESSION: 1. Postoperative changes from left-sided cardiac device placement without pneumothorax. 2. Interstitial opacities in the lower lungs which favor atelectasis. Dictated by: Dictated on workstation # [id number]
--- NOTE | 2022-07-08 17:40 | Cardiac Procedure Note-CS/ASA ---
Pre-Procedure Note Pre-Op Procedure Note Date of Available H&P: July 02, 2022 Date H&P Reviewed: July 08, 2022 Time H&P Reviewed: 13:00 History & Physical: H&P Reviewed Moderate Sedation PreProcedure ASA Score 3 Airway Lungs Heart ASA score ASA 1: a normal healthy patient ASA 2: a patient with a mild systemic disease (mid diabetes, controlled hypertension, obesity ASA 3: a patient with a severe systemic disease that limits activity (angina, COPD, prior Myocardial infarction) ASA 4: a patient with an incapacitating disease that is a constant threat to life (CHF, renal failure) ASA 5: a moribund patient not expected to survive 24 hrs. (ruptured aneurysm) ASA 6: a declared brain- patient whose organs are being harvested. For emergent operations, add the letter E after the classification Mallampati Classification Grade 2 Sedation Plan Analgesia, Amnesia, Plan communicated to team members The patient is an appropriate candidate to undergo the planned procedure, sedation, and anesthesia. The patient immediately re-assessed prior to indication. MERCY GOMES MD FACP FAC CCDS July 08, 2022 17:40
[2022-07-08] MEDS ORDERED: warFARin 5 MG (COUMADIN) TAB PO SCH (18:30)
[2022-07-08] MEDS: FLECAINIDE 100 MG (TAMBOCOR) TAB PO SCH (21:12)
[2022-07-08] MEDS: ceFAZolin INJECTION 1,000 MG in NS (IVPB) 50 ML IV SCH (22:18)
[2022-07-08] MEDS: ACETAMINOPHEN 500 MG TAB (TYLENOL) PO PRN (23:46)
[2022-07-09] VITALS (7 sets, daily range): BP systolic 110–153; BP diastolic 58–81
--- NOTE | 2022-07-09 00:55 | OPERATIVE REPORT ---
DATE OF SERVICE: 07/08/2022 PREOPERATIVE DIAGNOSIS: Sinus node dysfunction with intermittent long pauses of 4 seconds or more and episodes of junctional rhythm with heart rate in the low 30s (symptomatic). POSTOPERATIVE DIAGNOSIS: Sinus node dysfunction with intermittent long pauses of 4 seconds or more and episodes of junctional rhythm with heart rate in the low 30s (symptomatic). PROCEDURE: Permanent dual-chamber pacemaker implantation. ESTIMATED BLOOD LOSS: Less than 20 mL INDICATIONS: The patient is a 72-year-old lady who suffers from sinus node dysfunction and has intermittent atrial fibrillation with a rapid ventricular response. She also has intermittent profound bradycardia. She needs some medications to control rapid ventricular response during atrial fibrillation. Accordingly, to prevent symptomatic bradycardia, dual chamber pacemaker implantation was recommended by her director perioperative, Dr. Roblero at [facility] and he advised pacemaker implantation at this hospital. Informed consent was obtained. DESCRIPTION OF PROCEDURE: [facility] a fasting state. The left prepectoral area was prepared and draped in the usual sterile fashion. 1% lidocaine was used for local anesthesia. We gave 20 mL of contrast through a left forearm vein, which delineated the axillary and subclavian veins on the left side. This allowed us to put guidewires into the left subclavian vein with the tips of the guidewires placed in the right atrium. This was accomplished using the Seldinger technique and 1% lidocaine was used for local anesthesia. Sharp and blunt dissection was used to make a pacemaker pocket. The guidewires were used to advance sheath and the guidewires were removed. The sheaths were used to advance leads and the sheaths were removed. All lead manipulation was carried out under fluoroscopy. These are active fixation leads. The right ventricular lead was placed close to the right ventricular apex after we had tried multiple spots for good sensing and capture. This was a difficult process. She was not exhibiting good capture thresholds at multiple different spots. Finally, at the spot where the lead was finally placed, she did exhibit good capture and adequate sensing. The right atrial lead is also an active fixation lead and it is placed close to the right atrial appendage. For this lead too, we had to look for several different spots before finding a spot where sensing was good and capture was adequate. Both leads were actively fixed. Both leads were sutured to the prepectoral fascia using sleeves and 0 Ethibond. The pacemaker pocket had been packed with gauze soaked in saline. The gauze was removed. The pocket was thoroughly irrigated with an antibiotic solution. The leads were attached to a dual chamber pacemaker. The pacemaker and the part of the leads were placed in a TYRX pouch and the device and the leads were placed in the pacemaker pocket and the pocket was closed in 2 layers using 3-0 Vicryl. She tolerated the procedure well. The right atrial lead is Medtronic model 965937 with serial number [id number]. The right ventricular lead is Medtronic model 129956, with serial number [id number]. The pacemaker is Medtronic model W1DR01 with serial number [id number]. The P-wave amplitude is 3.4 millivolts. Atrial capture threshold is 1.75 volts at 0.7 milliseconds. R waves were sensed at 5.5 millivolts and the ventricular capture threshold is 2.75 volts at 0.4 milliseconds. The pacemaker is set in the AAIR to DDDR mode. Lower rate is 60 beats per minute. Upper tracking rate is 130 beats per minute. Job ID: [id number] DocumentID: [id number] Dictated Date: 07/08/2022 17:08:43 Commercial Loan Processor Date: 07/09/2022 00:54:00 Dictated By: MERCY GOMES MD; BERTRAND; FACP; FACC;
[2022-07-09 05:02] LABS: HEMATOCRIT 37 % (35-52); MEAN CORPUSCULAR HEMOGLOBIN 26 pg (25-34); MEAN CORPUSCULAR HGB CONC 32 g/dL (32-36); MEAN CORPUSCULAR VOLUME 81 fL (80-99); MEAN PLATELET VOLUME 10.3 fL (9.0-12.2); PLATELET COUNT 200 10^3/uL (130-400)
[2022-07-09 05:22] LABS: ALBUMIN 3.7 GM/DL (3.2-4.5); BILIRUBIN,TOTAL 0.6 MG/DL (0.1-1.0); CALCIUM 9.4 MG/DL (8.5-10.1); CREATININE SERUM 0.75 MG/DL (0.60-1.30); POTASSIUM 4.2 MMOL/L (3.6-5.0); TOTAL PROTEIN 6.7 GM/DL (6.4-8.2)
[2022-07-09] MEDS: ceFAZolin INJECTION 1,000 MG in NS (IVPB) 50 ML IV SCH (05:54)
[2022-07-09] MEDS: ACETAMINOPHEN 500 MG TAB (TYLENOL) PO PRN (06:31)
[2022-07-09] MEDS ORDERED: MULTIVIT W/MINERALS TAB (THERAGRAN M) PO SCH (07:00)
--- NOTE | 2022-07-09 07:59 | Progress Note - Cardiology ---
Cardiology SOAP Progress Note Subjective: Sitting up in chair at the bedside C/O localized discomfort in her left breast area No c/o SOB or palpitations Multiple concerns regarding hospital stay and post device implant instructions Objective: I&O/Vital Signs 07/08/22 07/08/22 07/08/22 07/09/22 21:00 22:00 23:00 00:00 Temp 37.0 Pulse 68 64 65 66 Resp 20 18 19 24 B/P (MAP) 178/80 (125) 148/71 (99) 140/70 (103) 140/70 (93) Pulse Ox 93 91 O2 Delivery Room Air Room Air Room Air Room Air 07/09/22 07/09/22 07/09/22 07/09/22 00:00 01:00 01:00 02:00 Pulse 63 61 61 68 Resp 22 20 12 B/P (MAP) 153/81 (111) 153/73 (100) 141/75 (107) Pulse Ox 93 93 96 O2 Delivery Room Air Room Air Room Air 07/09/22 07/09/22 07/09/22 07/09/22 03:00 04:00 06:00 06:12 Temp 36.4 Pulse 60 76 70 Resp 15 24 19 B/P (MAP) 110/58 (75) 142/65 (90) 148/73 (97) Pulse Ox 98 91 O2 Delivery Room Air Room Air OxyMask OxyMask O2 Flow Rate 3.00 3.00 07/09/22 07/09/22 07:22 07:49 Temp 36.3 Pulse 72 72 Resp 10 B/P (MAP) 140/66 (90) Pulse Ox 96 07/09/22 00:00 Intake Total 230 ml Balance 230 ml Weight (Pounds): 215 Weight (Ounces): 5.0 Weight (Calculated Kilograms): 97.259686 Side: left Device Insertion Site: without hematoma Swelling: without swelling Drainage: No Bruising: mild bruising Constitutional: AAO x 3, well-developed, well-nourished Respiratory: No accessory muscle use, No respiratory distress; chest expansion is symmetric, chest is bilaterally symmetric, lungs clear to auscultation Cardiovascular: regular rate-rhythm; No JVD; S1 and S2 Gastrointestional: No tender; soft, round, audible bowel sounds Extremities: no lower extremity edema bilateral Neurologic/Psychiatric: grossly intact (moves all extremities) Skin: No rash on exposed areas, No ulcerations on exposed areas Results/Procedures: Labs Laboratory Tests 07/08/22 10:31: White Blood Count 6.1, Red Blood Count 5.00, Hemoglobin 13.2, Hematocrit 41, Mean Corpuscular Volume 82, Mean Corpuscular Hemoglobin 26, Mean Corpuscular Hemoglobin Concent 32, Red Cell Distribution Width 15.3H, Platelet Count 231, Mean Platelet Volume 10.3, Prothrombin Time 16.2H, INR Comment 1.3, Activated Partial Thromboplast Time 25, Sodium Level 140, Potassium Level 4.0, Chloride Level 106, Carbon Dioxide Level 25, Anion Gap 9, Blood Urea Nitrogen 19H, Creatinine 0.76, Estimat Glomerular Filtration Rate 82, BUN/Creatinine Ratio 25, Glucose Level 111H, Calcium Level 9.9, Corrected Calcium 9.7, Total Bilirubin 0.6, Aspartate Amino Transf (AST/SGOT) 17, Alanine Aminotransferase (ALT/SGPT) 13, Alkaline Phosphatase 71, Total Protein 7.7, Albumin 4.3, Triglycerides Level 83, Cholesterol Level 208H, LDL Cholesterol Direct 105, VLDL Cholesterol 17, HDL Cholesterol 84H 07/09/22 04:34: White Blood Count 7.0, Red Blood Count 4.59, Hemoglobin 12.0, Hematocrit 37, Mean Corpuscular Volume 81, Mean Corpuscular Hemoglobin 26, Mean Corpuscular Hemoglobin Concent 32, Red Cell Distribution Width 15.1H, Platelet Count 200, Mean Platelet Volume 10.3, Sodium Level 136, Potassium Level 4.2, Chloride Level 105, Carbon Dioxide Level 23, Anion Gap 8, Blood Urea Nitrogen 12, Creatinine 0.75, Estimat Glomerular Filtration Rate 83, BUN/Creatinine Ratio 16, Glucose Level 110H, Calcium Level 9.4, Corrected Calcium 9.6, Total Bilirubin 0.6, Asp artate Amino Transf (AST/SGOT) 18, Alanine Aminotransferase (ALT/SGPT) 12, Alkaline Phosphatase 63, Total Protein 6.7, Albumin 3.7 A/P: Assessment: Sinus node dysfunction with intermittent long pauses of 4 seconds or more and episodes of junctional rhythm with heart rate in the low 30s (symptomatic). - S/P dual chamber PPM implant on 07-08-22 Paroxysmal atrial fibrillation - saw Dr. Hdez at [facility] in June 2020 - tikosyn tx - TSH normal: 1.21 in July 2015 and in May 2016 - Angiographically normal cors and LVEF 60-65% and mild LVEDP elev, on cardiac cath of 06/13/14, done after an abnormal stress test - Transient episode of involuntary movements and confusion post successful external electrical cardioversion of atrial fibrillation on 07/19/15. No clinical or CT evidence of stroke. This appears to have been a drug reaction (possibly delayed reaction to propofol or Versed) - s/p cardioversion for recurrent a fib on 02-01-21 - s/p A Fib ablation by Dr Roblero at [facility] on 06/05/21, tikosyn stopped in June 2021 - recurrence of A Fib in late Jan 2022 treated with elec CV in early Mar 2022 - recurrence of A Fib on 05/07/22 and still in it - MPI of 05-13-22 showed no evidence of signif myocardial ischemia or infarction. Normal regional wall motion. LVEF 66% - initiation of flecainide 50 bid on 05-15-22, increased to 100 bid on 05-18-22 - S/P DC cardioversion on 06-10-22. Subsequent Zio showed up to 4 second pauses (asssociated with near-syncope). Beta-fidel stopped and no recurrence of symptoms since ASD - History of percutaneous closure of an atrial septal defect (secundum defect) with an Amplatzer device in November 2011 while in [place], [place]. - Last echocardiogram of May 22, 2020 showed LVEF 60-65%. Grade 2 diastolic dysfunction. LA is mod dilated. RA is mildly dilated. Interatrial septum is intact. 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
[2022-07-09] MEDS ORDERED: CEFU500T63 PO (08:02)
--- NOTE | 2022-07-09 08:04 | Discharge Inst-Cardiology ---
Discharge Inst-Cardiac Discharge Medications New Medications: Cefuroxime Axetil (Cefuroxime) 500 Mg Tablet 500 MG PO BID, #10 TAB 0 Refills Continued Medications: Acetaminophen (Tylenol Extra Strength) 500 Mg Tablet 500 MG PO Q6H PRN for PAIN-MILD (1-4), TAB Cholecalciferol (Vitamin D3) (Vitamin D3) 50 Mcg (2000 Unit) Tablet 50 MCG PO DAILY, TAB Diltiazem HCl (Diltiazem 24Hr Cd) 180 Mg Cap.er.24h 180 MG PO DAILY, CAP Flecainide Acetate (Flecainide Acetate) 150 Mg Tablet 150 MG PO BID, TAB L.acidoph & Paracasei,B.lactis (Probiotic) 1 Each Capsule 1 EACH PO DAILY, CAP Metformin HCl (Metformin HCl) 500 Mg Tablet 500 MG PO BID, TAB Vitamin B Complex (Vitamin B Complex) 1 Each Tablet 1 EACH PO DAILY, TAB Warfarin Sodium (Jantoven) 5 Mg Tablet 5 MG PO MON,TH, TAB Warfarin Sodium (Warfarin Sodium) 5 Mg Tablet 10 MG PO SUN,,WED,THU,SAT, TAB TAKES 2 (5MG) TABLETS New, Converted or Re-Newed RX: Transmitted to Pharmacy Patient Instructions Patient Instructions: Please scheduled appointment for a nurse visit with Dr. Francis's nurse for a dressing removal on Thursday, July 11, 2022 Please schedule appointment to see Dr. Francis the first week of CARO Kwong July 09, 2022 08:04
[2022-07-09] MEDS ORDERED: LACTOBACILLUS ACIDOPHILUS (PROBIOTIC) CAPSULE PO SCH (09:00)
[2022-07-09] MEDS ORDERED: VITAMIN D3 25 MCG (1,000 UNITS) TABLET PO SCH (09:00)
[2022-07-09] MEDS: FLECAINIDE 100 MG (TAMBOCOR) TAB PO SCH (09:37)
--- NOTE | 2022-07-09 16:44 | Progress Note - Cardiology ---
Cardiology SOAP Progress Note Subjective: No cp or palp or syncope or shortness of breath No n/v/d No focal weakness No swelling No significant discomfort at site of device implantation Objective: I&O/Vital Signs 07/09/22 07/09/22 07/09/22 07/09/22 06:00 06:12 07:22 07:49 Temp 36.3 Pulse 70 72 72 Resp 19 10 B/P (MAP) 148/73 (97) 140/66 (90) Pulse Ox 98 91 96 O2 Delivery OxyMask OxyMask O2 Flow Rate 3.00 3.00 07/09/22 08:00 O2 Delivery Room Air 07/09/22 00:00 Intake Total 230 ml Balance 230 ml Weight (Pounds): 215 Weight (Ounces): 5.0 Weight (Calculated Kilograms): 97.686730 Side: left Device Insertion Site: without hematoma Swelling: without swelling Drainage: No Bruising: mild bruising Constitutional: AAO x 3, well-developed, well-nourished Respiratory: No accessory muscle use, No respiratory distress; chest expansion is symmetric, chest is bilaterally symmetric, lungs clear to auscultation Cardiovascular: regular rate-rhythm; No JVD; S1 and S2 Gastrointestional: No tender; soft, round, audible bowel sounds Extremities: no lower extremity edema bilateral Neurologic/Psychiatric: grossly intact (moves all extremities) Skin: No rash on exposed areas, No ulcerations on exposed areas Results/Procedures: Labs Laboratory Tests 07/09/22 04:34: White Blood Count 7.0, Red Blood Count 4.59, Hemoglobin 12.0, Hematocrit 37, Mean Corpuscular Volume 81, Mean Corpuscular Hemoglobin 26, Mean Corpuscular Hemoglobin Concent 32, Red Cell Distribution Width 15.1H, Platelet Count 200, Mean Platelet Volume 10.3, Sodium Level 136, Potassium Level 4.2, Chloride Level 105, Carbon Dioxide Level 23, Anion Gap 8, Blood Urea Nitrogen 12, Creatinine 0.75, Estimat Glomerular Filtration Rate 83, BUN/Creatinine Ratio 16, Glucose Level 110H, Calcium Level 9.4, Corrected Calcium 9.6, Total Bilirubin 0.6, Aspartate Amino Transf (AST/SGOT) 18, Alanine Aminotransferase (ALT/SGPT) 12, Alkaline Phosphatase 63, Total Protein 6.7, Albumin 3.7 Microbiology 07/08/22 MRSA Screen - Final, Complete No growth A/P: Assessment: Sinus node dysfunction with intermittent long pauses of 4 seconds or more and episodes of junctional rhythm with heart rate in the low 30s (symptomatic). - S/P dual chamber PPM implant on 07-08-22 Paroxysmal atrial fibrillation - saw Dr. Hdez at [facility] in June 2020 - tikosyn tx - TSH normal: 1.21 in July 2015 and in May 2016 - Angiographically normal cors and LVEF 60-65% and mild LVEDP elev, on cardiac cath of 06/13/14, done after an abnormal stress test - Transient episode of involuntary movements and confusion post successful external electrical cardioversion of atrial fibrillation on 07/19/15. No clinical or CT evidence of stroke. This appears to have been a drug reaction (possibly delayed reaction to propofol or Versed) - s/p cardioversion for recurrent a fib on 02-01-21 - s/p A Fib ablation by Dr Roblero at [facility] on 06/05/21, tikosyn stopped in June 2021 - recurrence of A Fib in late Jan 2022 treated with elec CV in early Mar 2022 - recurrence of A Fib on 05/07/22 and still in it - MPI of 05-13-22 showed no evidence of signif myocardial ischemia or infarction. Normal regional wall motion. LVEF 66% - initiation of flecainide 50 bid on 05-15-22, increased to 100 bid on 05-18-22 - S/P DC cardioversion on 06-10-22. Subsequent Zio showed up to 4 second pauses (asssociated with near-syncope). Beta-fidel stopped and no recurrence of symptoms since ASD - History of percutaneous closure of an atrial septal defect (secundum defect) with an Amplatzer device in November 2011 while in [place], [place]. - Last echocardiogram of May 22, 2020 showed LVEF 60-65%. Grade 2 diastolic dysfunction. LA is mod dilated. RA is mildly dilated. Interatrial septum is intact. PASP 35-40mmHg Ortho - DJD, s/p R knee replacement in Feb 2013 - S/p L TKR in Feb 2013 (Dr Taylor) Hematology - Pulmonary embolism in August 2009 - Coagulopathy diagnosed as prothrombin [id number] mutation, treated with chronic warfarin anticoag Obesity - Elevated body mass index of approx 37 Hyperparathyroidism - treated with partial parathyroidectomy at [facility] in August 2014 Sleep apnea syndrome - treated with CPAP Plan: S/P PPM implant on 07-08-22 Discussed post device implant care and instructions Answered all her questions and concerns in detail Device interrogation this morning done. Functioning normally Continue home medication regimen Schedule out pt site check on this Thursday Schedule out pt f/u appt in 1-2 weeks MERCY OGMES MD [facility] CCDS July 09, 2022 16:44
[2022-07-10] MEDS ORDERED: warFARin 5 MG (COUMADIN) TAB PO SCH (18:00)
== END 2022-07-09 09:57 ==
LOC: CATH 10:08 → CSD 17:19 → CATH 07-09 09:57
PROVIDERS: ATTEND Internal Medicine Cardiovascular Disease
DX: I49.5 Sick sinus syndrome (principal); I48.0 Paroxysmal atrial fibrillation; M19.90 Unspecified osteoarthritis, unspecified site; G47.33 Obstructive sleep apnea (adult) (pediatric); I26.99 Other pulmonary embolism without acute cor pulmonale; D68.52 Prothrombin gene mutation; E66.9 Obesity, unspecified; Z96.652 Presence of left artificial knee joint; Z68.37 Body mass index [BMI] 37.0-37.9, adult; Z79.01 Long term (current) use of anticoagulants; Z90.89 Acquired absence of other organs; Z99.81 Dependence on supplemental oxygen; Z95.818 Presence of other cardiac implants and grafts; Z86.79 Personal history of other diseases of the circulatory system
CPT/HCPCS: 33208; 71046; 75820; 80053 ×2; 80061; 85027 ×2; 85610; 85730; 87081; 93005; 94760; C1785; C1898 ×2; 36415

== ENCOUNTER 2022-08-01 08:00 | Outpatient (RCR) | payer MEDICARE, OTHER ==
[2022-07-23 08:46] LABS: INR 2.3 (0.8-1.4); PROTHROMBIN TIME PATIENT 24.8 SEC (12.2-14.7)
[2022-08-01 08:28] LABS: INR 2.2 (0.8-1.4); PROTHROMBIN TIME PATIENT 24.3 SEC (12.2-14.7)
== END 2022-08-15 | disposition home or self-care (01) ==
LOC: LAB 08:00
PROVIDERS: ATTEND Internal Medicine Cardiovascular Disease
DX: I48.0 Paroxysmal atrial fibrillation (principal)
CPT/HCPCS: 36415; 85610

== ENCOUNTER → 2022-08-01 | Outpatient (CLI) | payer MEDICARE, OTHER ==
[~2022-08-01] MED LIST changes: +CEFU500T63 PO; +DILT120C71 PO; -DILT120C85 PO; +DILT180C84 PO; +DILT240C74 PO; -DILT240C87 PO; +FLEC150T2 PO
--- NOTE | 2022-08-01 12:09 | Diagnostic Imaging Report ---
INDICATION: Routine screening. Comparison is made with prior mammogram from 07/29/2021 and 07/19/2020. 2-D and 3-D bilateral screening mammography was performed with CAD. Both breasts are heterogeneously dense, limiting the sensitivity of mammography. Calcified masses throughout the right breast are noted. Calcifications of the left breast are stable. No new mass or malignant-appearing microcalcifications are seen. Axillae are unremarkable. IMPRESSION: No mammographic features suspicious for malignancy are identified. ACR BI-RADS Category 2: Benign findings. Result letter will be mailed to the patient. Note: At least 10% of breast cancer is not imaged by mammography. BI-RADS Category 2 Dictated by: Dictated on workstation # [id number]
== END ==
LOC: RAD 07:44
PROVIDERS: ATTEND Internal Medicine
DX: Z12.31 Encounter for screening mammogram for malignant neoplasm of breast (principal)
CPT/HCPCS: 77063; 77067

== ENCOUNTER 2022-08-28 10:23 | Outpatient (RCR) | payer MEDICARE, OTHER ==
[2022-08-28 11:11] LABS: INR 2.3 (0.8-1.4); PROTHROMBIN TIME PATIENT 25.4 SEC (12.2-14.7)
== END 2022-09-15 | disposition home or self-care (01) ==
LOC: LAB 10:23
PROVIDERS: ATTEND Internal Medicine Cardiovascular Disease
DX: I48.0 Paroxysmal atrial fibrillation (principal)
CPT/HCPCS: 36415; 85610

== ENCOUNTER 2022-09-25 10:09 | Outpatient (RCR) | payer MEDICARE, OTHER ==
[2022-09-25 10:33] LABS: INR 2.1 (0.8-1.4); PROTHROMBIN TIME PATIENT 23.9 SEC (12.2-14.7)
[2022-09-30] MEDS ORDERED: DILT180C85 PO (12:23)
[2022-10-02] MEDS ORDERED: DOFE250C PO (08:34)
== END 2022-10-16 | disposition home or self-care (01) ==
LOC: LAB 10:09
PROVIDERS: ATTEND Internal Medicine Cardiovascular Disease
DX: I48.0 Paroxysmal atrial fibrillation (principal)
CPT/HCPCS: 36415; 85610

== ENCOUNTER 2022-09-30 07:39 | Inpatient (IN) | payer MEDICARE, OTHER ==
[~2022-09-30] VITALS: Ht 170 cm; Wt 99.9 kg
[~2022-09-30 07:39] MED LIST changes: +DOFETILIDE 250 MCG CAPSULE PO SCH
--- OUTSIDE RECORDS SUMMARY | 2022-09-30 07:44 | XMS REPORT | Clinical Summary ---
Author Author [facility] Organization [facility] Address Unknown Phone Unavailable Care Team Providers Care Independent Beauty Consultant Name Role Phone Jeff Scott MD Unavailable Leah Lala DO PCP Osbaldo Macias MD, Nicholasruva Unavailable Villa Francis MD Unavailable Unavailable Source Comments Some departments are not documenting in the electronic medical record. If you d o not see the information that you expected, contact Release of Information in [facility] Information Management department at [phone] for further assistan ce in locating additional records.[facility] Allergies No known active allergies Medications End Date Status Medication Sig Dispensed Refills Start Date Active warfarin (COUMADIN) 5 mg Take by 0 tablet mouth daily. 10mg Sun, , Fri, Sat; 5 mg M Thu Active diltiazem CD (CARDIZEM Take one 0 CD) 120 mg capsule by capsuleIndications: 240mg mouth every in the AM and 120mg in evening. the PM Indications: 240mg in the AM and 120mg in the PM Active metFORMIN (GLUCOPHAGE) Take one 0 500 mg tablet tablet by mouth twice daily with meals. Active cholecalciferol (VITAMIN Take one 0 D3) 50 mcg (2,000 unit) tablet by tablet mouth daily. Active Lactobacillus acidophilus Take by 0 (PROBIOTIC PO) mouth. Active vitamins, B complex tab Take one 0 tablet by mouth daily. Active HYDROcodone/acetaminophen Take one 0 (NORCO) 7.5/325 mg tablet tablet by mouth every 6 hours as needed for Pain. Active diltiazem CD (CARDIZEM Take one 0 CD) 240 mg capsule capsule by mouth every morning. Active dilTIAZem CD (CARDIZEM Take one 0 CD) 180 mg capsule capsule by mouth daily. Active Problems Problem Noted Date Diagnosed Date Other diseases of pulmonary vessels 06/30/2022 H/O radiofrequency ablation for complex left atrial 07/04/2021 arrhythmia Hypercoagulable state 07/04/2021 Yeast infection of the skin 05/28/2021 ASD (atrial septal defect) 07/02/2020 Overview: S/p closure 05/22/2020 - ECHO: ([place] [facility] [place]) LV cavity is normal. Wall th ickness is mildly to moderately increased. There is concent ganga hypertrophy. Systolic function is normal. EF ~ 60%. There were no regional wall motion abnormalities iden itified. Features are consistent with a pseudonormal LV f illing pattern, with concomitant abnormal relaxation and inc reased filling pressure (grade 2 diastolic dysfunction ). LA is moderately dilated. RA is mildly dilated. Intera trial septum is intact. PASP ~ 35-40mmHg. LINDA on CPAP 07/02/2020 Type 2 diabetes mellitus 10/16/2015 Essential hypertension 10/16/2015 Overview: 05/13/22 Regadenoson MPI ([place] via [place], [place]): no evidence of myocardial ischemia or infarction. Normal regional wall motion. Normal LVE F 66% Osteoarthritis 10/16/2015 PE (pulmonary thromboembolism) 10/16/2015 Hyperparathyroidism 10/16/2015 Persistent atrial fibrillation 10/16/2015 Overview: June 21, 2015 noted AF (has had in past but usually spontaneously converts July 2015 ORACIO/Cardioversion 06/05/2021 Persistent atrial fibrillatio n ablation (PVI by TAMEKA bilaterally), CTI ablation and jocelyne ctive DCCV by Dr. Roblero 08/22/2021 - Zio Patch: No evidence of atrial fibrillation. Paroxysmal atrial tachycardia. 06/02/2022 - Afib recurrence. Primary Ca rdiologist started Flecainide. 06/10/22 - Successful cardioversion with Dr. Francis 05/08/22 Zio patch: baseline normal sinu s rhythm 25-111bpm. Mean 64bpm. 41 pauses between 3.1-4.1 s econds in duration. Many of these pauses are after short ru ns of atrial tachycardia, but there is also evidence of sinus arrest. 1571 isolated PACs, 48 couplets, 17 tri plets. 18 runs of atrial tachycardia. Fastest ATach is 8 beats at max rate 171 bpm. Longest Atach is 9 beats with rate of 133bpm. No Afib/flutter. 34 isolated PVCs and 1 co uplet. No VT. Hypercalcemia 08/01/2014 Encounters Care Team Description Date Type Department Therese Clemens Records Request (Dr. Francis) 07/09/2022 Documentation Cardiology: [facility] [place] [address], [address] [phone] Tiffanie Rodriguez RN Procedure (Cancel ORACIO+PPM) 07/04/2022 Telephone Cardiology: [facility] [address], [address] [phone] Tiffanie Rodriguez RN Anticoagulation (Subtherapeutic INRs) 07/03/2022 Documentation Cardiology: [facility] [place] [address], [address] [place] [address] Tiffanie Rodriguez RN Persistent atrial fibrillation (HCC) (Pr imary Dx) 07/03/2022 Pre-Admit Cardiology: [facility] [place] [address], [address] [place] [address] Gris Nugent Pre-Certification (Prior auth not requir ed/) 07/02/2022 Documentation Cardiology: [id number] [place] [address] Dorita Foster RN Labs Only 07/02/2022 Documentation Cardiology: [facility], [id number] [place] [address]. [address], [address] [place] [address] Ann Castro, LEE Patient Instructions 07/02/2022 Telephone Cardiology: [facility] [address], [address] [phone] Therese Clemens Lab Results (PCP LABS ) 07/01/2022 Documentation Cardiology: [facility] [place] [address], [address] [phone] Sony Tyler, lead software developer Management (Tikosyn cost) 07/01/2022 Documentation Cardiology: [facility] [place] [address] [facility], [address] [phone] Rafael Roblero MD Follow Up (3 mo f/u - AF, eval for redo LAAA) 06/30/2022 Office Visit Cardiology: [place] for 9:30 AM Telehealth [facility] [address] [facility], [address] [phone] Therese Clemens Records Request (Dr. Francis) 06/30/2022 Documentation Cardiology: [facility] [address], [address] [phone] Rafael Roblero MD Sinus pause (Primary Dx) 06/30/2022 Prep for Case Cardiology: [facility] [place] [address], [address] [phone] Tiffanie Rodriguez, LEE Care Coordination 06/30/2022 Telephone Cardiology: [facility] [place] [address], [address] [phone] from Last 3 Months Surgical History Surgery Date Site/Laterality Comments HX HYSTERECTOMY COLONOSCOPY HX HEART CATHETERIZATION KNEE REPLACEMENT 02/16/2013 - Right 03/18/2013 CARDIAC SURGERY 02/16/2011 - ASD percutaneous re pair 02/16/2012 HX PARATHYROIDECTOMY 09/11/14 ELECTROCARDIOGRAM CARDIOVERSION DOPPLER ECHOCARDIOGRAPHY KNEE ARTHROSCOPY 02/16/2014 - Left 02/15/2015 CATARACT REMOVAL WITH 02/16/1987 - Right IMPLANT 02/16/1988 Medical History Medical History Date Comments Vision decreased Hypertension defect Hypercoagulable state (HCC) factor 2 mutation Arrhythmia A Fib x 2 episodes Sciatic leg pain mostly left leg Pneumonia 2004 MRSA pneumonia Diabetes mellitus (HCC) last Hgb A1C= 5.7 Arthritis right knee Infection LINDA on CPAP 07/02/2020 Pulmonary embolism (HCC) 2009 History of dental problems missing right lower toot h Family History Medical History Relation Name Comments Cancer-Colon Brother Diabetes Brother Hypertension Brother Coronary Artery Disease Father Hypertension Father Arthritis-osteo Mother Dementia Mother Hypertension Mother Stroke Mother High Cholesterol Sister Hypertension Sister Relation Name Status Comments Brother Alive Father massive heart attac k (Age 56) Mother Sister Alive Social History Date Tobacco Use Types Packs/Day Years Used Smoking Tobacco: Never Smokeless Tobacco: Never Tobacco Cessation: Counseling Given: No Comments Alcohol Use Standard Drinks/Week 1-2 a month socially Yes 1 (1 standard drink = 0.6 o z pure alcohol) Date Recorded PHQ-2 Answer 03/05/2021 PHQ-2 Score 0 Date Recorded Alcohol Use Answer Alcohol Use Yes Male: 9+ ounces (15+ Standard Drinks) per week Not o n file Threshold Female: 4.8+ ounces (8+ Standard Drinks) per week .6 Threshold Date Recorded Sex and Gender Information Value 07/04/2020 8:41 AM CDT Sex Assigned at Female 07/04/2020 8:41 AM CDT Gender Identity Female Sexual Orientation Not on file Obstetrics History Last Filed Vital Signs Reading Time Taken Comments Vital Sign 139/74 04/08/2022 10:29 AM FORMING TUBE SELECTOR Blood Pressure 71 04/08/2022 10:17 AM FORMING TUBE SELECTOR Pulse 36.1 C (97 F) 04/08/2022 10:17 AM FORMING TUBE SELECTOR Temperature 16 03/27/2015 1:43 PM FORMING TUBE SELECTOR Respiratory Rate 98% 04/08/2022 10:17 AM FORMING TUBE SELECTOR Oxygen Saturation - - Inhaled Oxygen Concentration 99.3 kg (219 lb) 04/08/2022 10:17 AM FORMING TUBE SELECTOR Weight 170.2 cm (5' 7") 04/08/2022 10:17 AM FORMING TUBE SELECTOR Height 34.3 04/08/2022 10:17 AM FORMING TUBE SELECTOR Body Mass Index Plan of Treatment Health Maintenance Due Date Last Done Comments DIABETES MICROALBUMIN TO 1948 CREATININE RATIO MEDICARE ANNUAL WELLNESS 1950 VISIT PNEUMOCOCCAL VACCINE 65+ 1954 YRS (1 - PCV) DIABETES DILATED EYE EXAM 1966 DIABETES FOOT EXAM 1966 (.dmfoot) DTAP/TDAP VACCINES (1 - 1966 Tdap) HEPATITIS C SCREENING 1966 PHYSICAL (COMPREHENSIVE) 1966 EXAM BREAST CANCER SCREENING 1988 COLORECTAL CANCER 1993 SCREENING OSTEOPOROSIS 2013 SCREENING/MONITORING ADVANCED CARE PLANNING 02/16/2022 DISCUSSION AND DOCUMENTATION DEPRESSION SCREENING 02/16/2022 03/05/2021 INFLUENZA VACCINE (#1) 2022 11/19/2021, 11/28/2020, 11/15/2018, Additional history exists DIABETES HBA1C 12/17/2022 06/16/2022 DIABETES EGFR SCREEN 07/03/2023 07/02/2022, 06/16/2022, 06/06/2021, Additional history exists SHINGLES RECOMBINANT Completed 10/27/2017, VACCINE 06/24/2017 COVID-19 VACCINE Completed 11/22/2021, 05/24/2021, 12/12/2020, Additional history exists Procedures Comments Procedure Name Priority Date/Time Associated Diag nosis CBC Routine 07/02/2022 BASIC METABOLIC PANEL Routine 07/02/2022 MAGNESIUM Routine 07/02/2022 PROTIME INR (PT) Routine 07/02/2022 PROTIME INR (PT) Routine 07/01/2022 from Last 3 Months Results * PROTIME INR (PT) (07/02/2022) Only the most recent of 2 results within the time period is included. Pathologist Signature Component Value Ref Test Method Analysis Performed A t Range Time INR 1.6 OTHER OUTSIDE LAB Anatomical Location / Laterality Collection Method / Volume Chuck ection Time Received Time Specimen (Source) BLOOD / Unknown 07/02/2022 Historical Provider LABORATORY ORDERABLES City/State/ZIP Code Phone Number Performing Address Organization OTHER OUTSIDE LAB * CBC (07/02/2022) Pathologist Signature Component Value Ref Test Method Analysis Performed A t Range Time White Blood Cells 6.2 OTHER OUTSIDE LAB RBC 5.03 OTHER OUTSIDE LAB Hemoglobin 13.0 OTHER OUTSIDE LAB Hematocrit 41 OTHER OUTSIDE LAB MCV 18 OTHER OUTSIDE LAB MCH 26 OTHER OUTSIDE LAB MCHC 31 OTHER OUTSIDE LAB Platelet Count 267 OTHER OUTSIDE LAB MPV 9.8 OTHER OUTSIDE LAB RDW 15.3 OTHER OUTSIDE LAB Anatomical Location / Laterality Collection Method / Volume Chuck ection Time Received Time Specimen (Source) BLOOD / Unknown 07/02/2022 Historical Provider LABORATORY ORDERABLES City/State/ZIP Code Phone Number Performing Address Organization OTHER OUTSIDE LAB * MAGNESIUM (07/02/2022) Pathologist Signature Component Value Ref Test Method Analysis Performed A t Range Time Magnesium 2.0 OTHER OUTSIDE LAB Anatomical Location / Laterality Collection Method / Volume Chuck ection Time Received Time Specimen (Source) BLOOD / Unknown 07/02/2022 Rafael Macias MD LABORATORY ORDERABLES City/State/ZIP Code Phone Number Performing Address Organization OTHER OUTSIDE LAB * BASIC METABOLIC PANEL (07/02/2022) Pathologist Signature Component Value Ref Test Method Analysis Performed A t Range Time Sodium 139 OTHER OUTSIDE LAB Potassium 4.5 OTHER OUTSIDE LAB Chloride 108 OTHER OUTSIDE LAB CO2 26 OTHER OUTSIDE LAB Blood Urea Nitrogen 17 OTHER OUTSIDE LAB Creatinine 0.77 OTHER OUTSIDE LAB Glucose 116 OTHER OUTSIDE LAB Calcium 10.3 OTHER OUTSIDE LAB eGFR Non OTHER OUTSIDE LAB Armenian eGFR OTHER OUTSIDE LAB [place] Anion Gap OTHER OUTSIDE LAB Anatomical Location / Laterality Collection Method / Volume Chuck ection Time Received Time Specimen (Source) BLOOD / Unknown 07/02/2022 Rafael Macias MD LABORATORY ORDERABLES [facility]/State/ZIP Code Phone Number Performing Address Organization OTHER OUTSIDE LAB from Last 3 Months Insurance Type Payer Benefit Subscriber ID Effective Phone Address Plan / Dates Group Medicare MEDICARE MEDICARE [id number] 2013- [phone] [address] AND Present [address] [place] [phone] Advance Directives Date Inactivated Comments Code Status Date Activated 06/06/2021 1:11 PM Full Code 06/05/2021 6:54 AM Comments Question Answer Provider has No, discussion not necessar y based on Dx discussed Code Status w/Patient or Family? Care Teams Start Date End Date Independent Beauty Consultant Relationship Specialty 07/11/14 Leah Lala DO PCP - General Internal Medicine [address] [place] [address] 06/21/14 Jeff Scott MD Surgical Oncology [address] [place] [phone] 06/02/22 Rafael Roblero MD Clinical Cardiac [address] [facility] [place] [address] Internal Medicine 06/02/22 Villa Francis MD Cardiovascul ar Disease [address] [place] [address]
[2022-09-30 08:10] VITALS: BP 156/69
[2022-09-30 08:35] LABS: CALCIUM 9.7 MG/DL (8.5-10.1); CREATININE SERUM 0.84 MG/DL (0.60-1.30); POTASSIUM 4.2 MMOL/L (3.6-5.0)
[2022-09-30] MEDS ORDERED: DOFETILIDE 125 MCG CAPSULE PO SCH ×2 (09:00→19:00)
[2022-09-30 09:04] LABS: INR 2.4 (0.8-1.4); PROTHROMBIN TIME PATIENT 25.7 SEC (12.2-14.7)
[2022-09-30 11:54] VITALS: BP 154/65
[2022-09-30] MEDS ORDERED: DILT180C85 PO (12:23)
--- NOTE | 2022-09-30 14:34 | Cardiology History & Physical ---
[facility]-Cardiology Cardiology H&P Date of Admission 09-30-22 Primary Care Physician Admitting Physician: Villa Francis MD [facility] Attending Physician: Villa Francis MD [facility] Attending Physician Leah Lala DO Consulting Physician [facility] Ms. Contreras is a 72 yr old female being admitted to [facility] for Tikosyn initiation. No c/o CP, SOB, palpitations, syncope or near syncope. No c/o n/v/d. She has been compliant with her medications. Review of Systems-Cardiology Review of Systems Constitutional: No chills, No fever, No malaise Eyes: No vision change Ears/Nose/Throat: No epistaxis, No recent hearing loss Respiratory: As described under HPI Cardiovascular: As described under HPI Gastrointestinal: No diarrhea, No nausea, No vomiting Genitourinary: No dysuria, No hematuria Musculoskeletal: no symptoms reported Skin: No rash on exposed areas, No ulcerations on exposed areas Psychiatric/Neurological: No anxiety, No depression, No seizure, No focal weakness, No syncope Hematologic: No bleeding abnormalities [id number] Hx Patient Social History Alcohol Use?: Yes Pt feels they are or have been: No Immunizations Up To Date Tetanus Booster (TDap): More than 5yrs Date of Pneumonia Vaccine: Nov 28, 2019 Date of Influenza Vaccine: Dec 01, 2019 Past Medical History PMH As described under Assessment. Family Medical History Family Medical History: Reported family history of father having CAD and HTN. Mother had HTN. Brother had CAD, NE and DM. Family History: 03 FATHER Family history: Coronary thrombosis Family history: Hypertension 03 MOTHER Family history: Alzheimer's disease Family history: Hypertension 09 BROTHER Family history: Cardiovascular disease Family history: Coronary thrombosis Family history: Diabetes mellitus Allergies and Home Medications Allergies Coded Allergies: No Known Drug Allergies (Unverified , 07/05/15) Patient Home Medication List Acetaminophen (Tylenol Extra Strength) 500 Mg Tablet, 500 MG PO Q6H PRN for PAIN-MILD (1-4), (Reported) Entered as Reported by: LUIS F CHRIS on 06/10/22839 Last Action: Reviewed Cholecalciferol (Vitamin D3) (Vitamin D3) 50 Mcg (2000 Unit) Tablet, 50 MCG PO DAILY, (Reported) Entered as Reported by: LUIS F CHRIS on 4/25/23 0840 Last Action: Reviewed Diltiazem HCl (Diltiazem 24Hr ER) 180 Mg Cap.er.24h, 180 MG PO DAILY, (Reported) Entered as Reported by: JUWAN FLOWER on 09/30/22 1223 Last Action: Reviewed Flecainide Acetate (Flecainide Acetate) 150 Mg Tablet, 150 MG PO BID, (Reported) Entered as Reported by: LUIS F CHRIS on 07/08/22 1047 Last Action: Reviewed L.acidoph & Paracasei,B.lactis (Probiotic) 1 Each Capsule, 1 EACH PO DAILY, (Re ported) Entered as Reported by: MARVEL BEGUM on 02/01/21 0808 Last Action: Reviewed Metformin HCl (Metformin HCl) 500 Mg Tablet, 500 MG PO BID, (Reported) Entered as Reported by: FELIPE PEREZ on 10/29/14 1654 Last Action: Reviewed Vitamin B Complex (Vitamin B Complex) 1 Each Tablet, 1 EACH PO DAILY, (Reported) Entered as Reported by: LUIS F CHRIS on 06/10/22 0840 Last Action: Reviewed Warfarin Sodium (Jantoven) 5 Mg Tablet, 5 MG PO , (Reported) Entered as Reported by: COLLEEN WAGNER on 07/05/15 1005 Last Action: Reviewed Warfarin Sodium (Warfarin Sodium) 5 Mg Tablet, 10 MG PO ROACH,TU,WE,FR,SA, (Reported) Entered as Reported by: TARA GONZALES on 11/06/15 1231 Last Action: Reviewed Discontinued Medications Cefuroxime Axetil (Cefuroxime) 500 Mg Tablet, 500 MG PO BID Discontinued Reason: No Longer Taking Prescribed by: CARO HERBERT on 07/09/22 0802 Last Action: Discontinued Diltiazem HCl (Diltiazem 24Hr Cd) 180 Mg Cap.er.24h, 180 MG PO DAILY, (Reported) Discontinued Reason: Duplicate Order Entered as Reported by: LUIS F CHRIS on 07/08/22 104 Last Action: Discontinued Physical Exam-Cardiology Physical Exam Vital Signs/I&O 09/30/22 09/30/22 09/30/22 09/30/22 08:10 08:11 09:31 11:32 Temp 36.5 Pulse 71 68 66 62 Resp 16 B/P (MAP) 156/69 (98) Pulse Ox 95 O2 Delivery Room Air 09/30/22 09/30/22 11:54 12:54 Temp 36.1 Pulse 61 60 Resp 14 B/P (MAP) 154/65 (94) Pulse Ox 99 O2 Delivery Room Air Capillary Refill : Constitutional: AAO x 3, well-developed, well-nourished HEENT: PERRL, hearing is well preserved, oral hygience is good Neck: No carotid bruit; carotid pulses are 2 + bilaterally Respiratory: No accessory muscle use, No respiratory distress; chest expansion is symmetric, chest is bilaterally symmetric, lungs clear to auscultation Cardiovascular: regular rate-rhythm; No JVD; S1 and S2 Gastrointestinal: No tender; soft, audible bowel sounds Extremities: no lower extremity edema bilateral Neurologic/Psychiatric: other (moves all extremities) Skin: No rash on exposed areas, No ulcerations on exposed areas Data Review Labs Laboratory Tests 09/30/22 07:58: Prothrombin Time 25.7H, INR Comment 2.4H, Sodium Level 139, Potassium Level 4.2, Chloride Level 105, Carbon Dioxide Level 24, Anion Gap 10, Blood Urea Nitrogen 16, Creatinine 0.84, Estimat Glomerular Filtration Rate 73, BUN/Creatinine Ratio 19, Glucose Level 114H, Calcium Level 9.7, Magnesium Level 2.0 A/P-Cardiology Assessment/Admission Diagnosis Sinus node dysfunction with intermittent long pauses of 4 seconds or more and episodes of junctional rhythm with heart rate in the low 30s (symptomatic). - S/P dual chamber PPM implant on 07-08-22 Paroxysmal atrial fibrillation - saw Dr. Hdez at [facility] in June 2020 - tikosyn tx - TSH normal: 1.21 in July 2015 and in May 2016 - Angiographically normal cors and LVEF 60-65% and mild LVEDP elev, on cardiac cath of 06/13/14, done after an abnormal stress test - Transient episode of involuntary movements and confusion post successful external electrical cardioversion of atrial fibrillation on 07/19/15. No clinical or CT evidence of stroke. This appears to have been a drug reaction (possibly delayed reaction to propofol or Versed) - s/p cardioversion for recurrent a fib on 02-01-21 - s/p A Fib ablation by Dr Roblero at [facility] on 06/05/21, tikosyn stopped in June 2021 - recurrence of A Fib in late Jan 2022 treated with elec CV in early Mar 2022 - recurrence of A Fib on 05/07/22 and still in it - MPI of 05-13-22 showed no evidence of signif myocardial ischemia or infarction. Normal regional wall motion. LVEF 66% - initiation of flecainide 50 bid on 05-15-22, increased to 100 bid on 05-18-22 - S/P DC cardioversion on 06-10-22. Subsequent Zio showed up to 4 second pauses (associated with near-syncope). Beta-fidel stopped and no recurrence of symptoms since ASD - History of percutaneous closure of an atrial septal defect (secundum defect) with an Amplatzer device in November 2011 while in [place], [place]. - Last echocardiogram of May 22, 2020 showed LVEF 60-65%. Grade 2 diastolic dy sfunction. LA is mod dilated. RA is mildly dilated. Interatrial septum is intact. 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
[2022-09-30 16:00] VITALS: BP 155/71
[2022-09-30] MEDS ORDERED: ACETAMINOPHEN 500 MG TABLET PO PRN (16:00)
--- NOTE | 2022-09-30 16:38 | Consultation-Cardiology ---
HPI-Cardiology Cardiology Consultation: Date of Consultation 09/30/22 Time Seen by a Provider: 15:00 Date of Admission Attending Physician Leah Lala DO Admitting Physician Admitting Physician: Villa Francis MD [facility] [place] Attending Physician: Villa Francis MD [facility] [place] Consulting Physician VILLA FRANCIS MD, [facility], [facility] HPI: Chief Complaint: Reason for admission: Initiation of Tikosyn Ms. Contreras is a 72 yr old female being admitted to [facility] for Tikosyn initiation. No c/o CP, SOB, palpitations, syncope or near syncope. No c/o n/v/d. She has been compliant with her medications. Review of Systems-Cardiology Review of Systems Constitutional: No chills, No fever, No malaise Eyes: No vision change Ears/Nose/Throat: No epistaxis, No recent hearing loss Respiratory: As described under HPI Cardiovascular: As described under HPI Gastrointestinal: No diarrhea, No nausea, No vomiting Genitourinary: No dysuria, No hematuria Musculoskeletal: no symptoms reported Skin: No rash on exposed areas, No ulcerations on exposed areas Psychiatric/Neurological: No anxiety, No depression, No seizure, No focal weakness, No syncope Hematologic: No bleeding abnormalities PNU-Ektjaw-Fqrxpu Hx Patient Social History Alcohol Use?: Yes Pt feels they are or have been: No Immunizations Up To Date Tetanus Booster (TDap): More than 5yrs Date of Pneumonia Vaccine: Nov 28, 2019 Date of Influenza Vaccine: Dec 01, 2019 Past Medical History PMH As described under Assessment. Family Medical History Family Medical History: Reported family history of father having CAD and HTN. Mother had HTN. Brother had CAD, [place] and DM. Family History: Family history: Alzheimer's disease 03 MOTHER Family history: Cardiovascular disease 09 BROTHER Family history: Coronary thrombosis 03 FATHER 09 BROTHER Family history: Diabetes mellitus 09 BROTHER Family history: Hypertension 03 FATHER 03 MOTHER Allergies and Home Medications Allergies Coded Allergies: No Known Drug Allergies (Unverified , 07/05/15) Patient Home Medication List Home Medication List Reviewed: Yes Acetaminophen (Tylenol Extra Strength) 500 Mg Tablet, 500 MG PO Q6H PRN for PAIN-MILD (1-4), (Reported) Entered as Reported by: LUIS F CHRIS on 06/10/22 0803 Last Action: Reviewed Cholecalciferol (Vitamin D3) (Vitamin D3) 50 Mcg (2000 Unit) Tablet, 50 MCG PO DAILY, (Reported) Entered as Reported by: LUIS F CHRIS on 06/10/22 0840 Last Action: Reviewed Diltiazem HCl (Diltiazem 24Hr ER) 180 Mg Cap.er.24h, 180 MG PO DAILY, (Reported) Entered as Reported by: JUWAN FLOWER on 09/30/22 1223 Last Action: Reviewed Flecainide Acetate (Flecainide Acetate) 150 Mg Tablet, 150 MG PO BID, (Reported) Entered as Reported by: LUIS F CHRIS on 07/08/22 1047 Last Action: Reviewed L.acidoph & Paracasei,B.lactis (Probiotic) 1 Each Capsule, 1 EACH PO DAILY, (Reported) Entered as Reported by: MARVEL BEGUM on 02/01/21 0808 Last Action: Reviewed Metformin HCl (Metformin HCl) 500 Mg Tablet, 500 MG PO BID, (Reported) Entered as Reported by: FELIPE PEREZ on 10/29/14 1654 Last Action: Reviewed Vitamin B Complex (Vitamin B Complex) 1 Each Tablet, 1 EACH PO DAILY, (Reported) Entered as Reported by: LUIS F CHRIS on 06/10/22 0840 Last Action: Reviewed Warfarin Sodium (Jantoven) 5 Mg Tablet, 5 MG PO , (Reported) Entered as Reported by: COLLEEN WAGNER on 07/05/15 1005 Last Action: Reviewed Warfarin Sodium (Warfarin Sodium) 5 Mg Tablet, 10 MG PO ROACH,TU,WE,FR,SA, (Reported) Entered as Reported by: TARA GONZALES on 11/06/15 1231 Last Action: Reviewed Discontinued Medications Cefuroxime Axetil (Cefuroxime) 500 Mg Tablet, 500 MG PO BID Discontinued Reason: No Longer Taking Prescribed by: CARO HERBERT on 07/09/22 0802 Last Action: Discontinued Diltiazem HCl (Diltiazem 24Hr Cd) 180 Mg Cap.er.24h, 180 MG PO DAILY, (Reported) Discontinued Reason: Duplicate Order Entered as Reported by: LUIS F CHRIS on 07/08/22 1047 Last Action: Discontinued Physical Exam-Cardiology Physical Exam Vital Signs/I&O 09/30/22 09/30/22 09/30/22 09/30/22 08:10 08:11 09:31 11:32 Temp 36.5 Pulse 71 68 66 62 Resp 16 B/P (MAP) 156/69 (98) Pulse Ox 95 O2 Delivery Room Air 09/30/22 09/30/22 09/30/22 11:54 12:54 16:00 Temp 36.1 35.8 Pulse 61 60 61 Resp 14 12 B/P (MAP) 154/65 (94) 155/71 (99) Pulse Ox 99 97 O2 Delivery Room Air Room Air Capillary Refill : Constitutional: AAO x 3, well-developed, well-nourished HEENT: PERRL, hearing is well preserved, oral hygience is good Neck: No carotid bruit; carotid pulses are 2 + bilaterally Respiratory: No accessory muscle use, No respiratory distress; chest expansion is symmetric, chest is bilaterally symmetric, lungs clear to auscultation Cardiovascular: regular rate-rhythm; No JVD; S1 and S2 Gastrointestinal: No tender; soft, audible bowel sounds Extremities: no lower extremity edema bilateral Neurologic/Psychiatric: other (moves all extremities) Skin: No rash on exposed areas, No ulcerations on exposed areas Data Review Labs Laboratory Tests 09/30/22 07:58: Prothrombin Time 25.7H, INR Comment 2.4H, Sodium Level 139, Potassium Level 4.2, Chloride Level 105, Carbon Dioxide Level 24, Anion Gap 10, Blood Urea Nitrogen 16, Creatinine 0.84, Estimat Glomerular Filtration Rate 73, BUN/Creatinine Ratio 19, Glucose Level 114H, Calcium Level 9.7, Magnesium Level 2.0 Laboratory Tests 09/30/22 07:58 A/P-Cardiology Assessment/Admission Diagnosis Sinus node dysfunction with intermittent long pauses of 4 seconds or more and episodes of junctional rhythm with heart rate in the low 30s (symptomatic). - S/P dual chamber PPM implant on 07-08-22 Paroxysmal atrial fibrillation - saw Dr. Hdez at [facility] in June 2020 - tikokayy tx - TSH normal: 1.21 in July 2015 and in May 2016 - Angiographically normal cors and LVEF 60-65% and mild LVEDP elev, on cardiac cath of 06/13/14, done after an abnormal stress test - Transient episode of involuntary movements and confusion post successful external electrical cardioversion of atrial fibrillation on 07/19/15. No clinical or CT evidence of stroke. This appears to have been a drug reaction (possibly delayed reaction to propofol or Versed) - s/p cardioversion for recurrent a fib on 02-01-21 - s/p A Fib ablation by Dr Roblero at [facility] on 06/05/21, tikosyn stopped in June 2021 - recurrence of A Fib in late Jan 2022 treated with elec CV in early Mar 2022 - recurrence of A Fib on 05/07/22 and still in it - MPI of 05-13-22 showed no evidence of signif myocardial ischemia or infarction. Normal regional wall motion. LVEF 66% - initiation of flecainide 50 bid on 05-15-22, increased to 100 bid on 05-18-22 - S/P DC cardioversion on 06-10-22. Subsequent Zio showed up to 4 second pauses (associated with near-syncope). Beta-fidel stopped and no recurrence of symptoms since ASD - History of percutaneous closure of an atrial septal defect (secundum defect) with an Amplatzer device in November 2011 while in [place], [place]. - Last echocardiogram of May 22, 2020 showed LVEF 60-65%. Grade 2 diastolic dysfunction. LA is mod dilated. RA is mildly dilated. Interatrial septum is intact. 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 Had been on Tikosyn 250 bid prior to A Fib ablation. Plan to restart Tikosyn with the goal to take to 250 bid if tolerated * Admitted to tele and Tikosyn protocol being followed VILLA FRANCIS MD FACP [facility] CCDS Sep 30, 2022 16:38
[2022-09-30] MEDS: metFORMIN 500 MG TABLET PO SCH (16:51)
[2022-09-30] MEDS: warFARin 5 MG (COUMADIN) TAB PO SCH (16:51)
[2022-09-30] MEDS ORDERED: warFARin 5 MG (COUMADIN) TAB PO SCH (18:00)
[2022-09-30 19:51] VITALS: BP 155/71
[2022-09-30] MEDS ORDERED: DOFETILIDE 250 MCG CAPSULE PO SCH (21:00)
[2022-09-30 21:05] VITALS: BP 147/70
[2022-09-30] MEDS: DOFETILIDE 125 MCG CAPSULE PO SCH (21:08)
[2022-09-30 23:30] VITALS: BP 160/71
[2022-10-01 04:00] VITALS: BP 139/69
[2022-10-01 05:09] LABS: POTASSIUM 4.1 MMOL/L (3.6-5.0)
[2022-10-01 05:10] LABS: CALCIUM 9.7 MG/DL (8.5-10.1)
[2022-10-01 05:14] LABS: CREATININE SERUM 0.69 MG/DL (0.60-1.30)
[2022-10-01] MEDS: metFORMIN 500 MG TABLET PO SCH ×2 (06:01→17:41)
[2022-10-01 07:37] VITALS: BP 134/67
[2022-10-01] MEDS: dilTIAZem ER 180 MG CAPSULE PO SCH (09:15)
[2022-10-01] MEDS: LACTOBACILLUS ACIDOPHILUS (PROBIOTIC) CAPSULE PO SCH (09:15)
[2022-10-01] MEDS: DOFETILIDE 125 MCG CAPSULE PO SCH ×2 (09:16→21:15)
--- NOTE | 2022-10-01 09:33 | Progress Note - Cardiology ---
Cardiology SOAP Progress Note Subjective: Sitting up in chair at the bedside States she feels well No c/o CP, SOB or palpitations No c/o syncope or near syncope Objective: I&O/Vital Signs 10/01/22 10/01/22 10/02/22 10/02/22 23:16 23:28 01:00 03:13 Temp 36.3 36.4 Pulse 62 60 60 62 Resp 17 18 B/P (MAP) 145/67 (93) 122/58 (79) Pulse Ox 97 100 O2 Delivery Room Air Room Air 10/02/22 10/02/22 07:09 08:00 Temp 36.3 Pulse 60 75 Resp 18 B/P (MAP) 126/78 (94) Pulse Ox 95 O2 Delivery Room Air 10/02/22 00:00 Intake Total 1100 ml Output Total 1250 ml Balance -150 ml Weight (Pounds): 215 Weight (Ounces): 5.0 Weight (Calculated Kilograms): 97.598326 Constitutional: AAO x 3, well-developed, well-nourished Respiratory: No accessory muscle use, No respiratory distress; chest expansion is symmetric, chest is bilaterally symmetric, lungs clear to auscultation Cardiovascular: regular rate-rhythm; No JVD; S1 and S2 Gastrointestional: No tender; soft, audible bowel sounds Extremities: no lower extremity edema bilateral Neurologic/Psychiatric: other (moves all extremities) Skin: No rash on exposed areas, No ulcerations on exposed areas Results/Procedures: Labs A/P: Assessment: Sinus node dysfunction with intermittent long pauses of 4 seconds or more and episodes of junctional rhythm with heart rate in the low 30s (symptomatic). - S/P dual chamber PPM implant on 07-08-22 Paroxysmal atrial fibrillation - saw Dr. Hdez at [facility] in June 2020 - tikosyn tx - TSH normal: 1.21 in July 2015 and in May 2016 - Angiographically normal cors and LVEF 60-65% and mild LVEDP elev, on cardiac cath of 06/13/14, done after an abnormal stress test - Transient episode of involuntary movements and confusion post successful external electrical cardioversion of atrial fibrillation on 07/19/15. No clinical or CT evidence of stroke. This appears to have been a drug reaction (possibly delayed reaction to propofol or Versed) - s/p cardioversion for recurrent a fib on 02-01-21 - s/p A Fib ablation by Dr Roblero at [facility] on 06/05/21, tikosyn stopped in June 2021 - recurrence of A Fib in late Jan 2022 treated with elec CV in early Mar 2022 - recurrence of A Fib on 05/07/22 and still in it - MPI of 05-13-22 showed no evidence of signif myocardial ischemia or infarction. Normal regional wall motion. LVEF 66% - initiation of flecainide 50 bid on 05-15-22, increased to 100 bid on 05-18-22 - S/P DC cardioversion on 06-10-22. Subsequent Zio showed up to 4 second pauses (associated with near-syncope). Beta-fidel stopped and no recurrence of s ymptoms since ASD - History of percutaneous closure of an atrial septal defect (secundum defect) with an Amplatzer device in November 2011 while in [place], [place]. - Last echocardiogram of May 22, 2020 showed LVEF 60-65%. Grade 2 diastolic dysfunction. LA is mod dilated. RA is mildly dilated. Interatrial septum is intact. PASP 35-40mmHg Ortho - DJD, s/p R knee replacement in Feb 2013 - S/p L TKR in Feb 2013 (Dr Taylor) Hematology - Pulmonary embolism in August 2009 - Coagulopathy diagnosed as prothrombin [id number] mutation, treated with chronic warfarin anticoag Obesity - Elevated body mass index of approx 37 Hyperparathyroidism - treated with partial parathyroidectomy at [facility] in August 2014 Sleep apnea syndrome - treated with CPAP Plan: * Continue Tikosyn protocol * EKG from last night has been reviewed * Continue current dose * Continue to monitor lab CARO HERBERT Oct 01, 2022 09:33
[2022-10-01 11:52] VITALS: BP 139/62
--- NOTE | 2022-10-01 12:31 | Progress Note - Cardiology ---
Cardiology SOAP Progress Note Subjective: No cp or palp or syncope No shortness of breath at rest No n/v/d No weakness No focal weakness Objective: I&O/Vital Signs 10/01/22 10/01/22 10/01/22 10/01/22 01:00 02:18 04:00 07:14 Pulse 82 60 60 60 Resp 14 B/P (MAP) 139/69 (92) Pulse Ox 96 O2 Delivery Room Air 10/01/22 10/01/22 10/01/22 10/01/22 07:37 08:00 09:16 11:16 Temp 36.3 Pulse 62 72 66 Resp 14 B/P (MAP) 134/67 (89) Pulse Ox 98 O2 Delivery Room Air Room Air 10/01/22 11:52 Temp 36.4 Pulse 65 Resp 17 B/P (MAP) 139/62 (87) Pulse Ox 96 O2 Delivery Room Air 10/01/22 00:00 Intake Total 2640 ml Output Total 3800 ml Balance -1160 ml Weight (Pounds): 215 Weight (Ounces): 5.0 Weight (Calculated Kilograms): 97.752710 Constitutional: AAO x 3, well-developed, well-nourished Respiratory: No accessory muscle use, No respiratory distress; chest expansion is symmetric, chest is bilaterally symmetric, lungs clear to auscultation Cardiovascular: regular rate-rhythm; No JVD; S1 and S2 Gastrointestional: No tender; soft, audible bowel sounds Extremities: no lower extremity edema bilateral Neurologic/Psychiatric: other (moves all extremities) Skin: No rash on exposed areas, No ulcerations on exposed areas Results/Procedures: Labs Laboratory Tests 10/01/22 04:21: Sodium Level 140, Potassium Level 4.1, Chloride Level 107, Carbon Dioxide Level 24, Anion Gap 9, Blood Urea Nitrogen 13, Creatinine 0.69, Estimat Glomerular Filtration Rate 91, BUN/Creatinine Ratio 19, Glucose Level 98, Calcium Level 9.7 Laboratory Tests 09/30/22 07:58 10/01/22 04:21 A/P: Assessment: Sinus node dysfunction with intermittent long pauses of 4 seconds or more and episodes of junctional rhythm with heart rate in the low 30s (symptomatic). - S/P dual chamber PPM implant on 07-08-22 Paroxysmal atrial fibrillation - saw Dr. Hdez at [facility] in June 2020 - tikosyn tx - TSH normal: 1.21 in July 2015 and in May 2016 - Angiographically normal cors and LVEF 60-65% and mild LVEDP elev, on cardiac cath of 06/13/14, done after an abnormal stress test - Transient episode of involuntary movements and confusion post successful external electrical cardioversion of atrial fibrillation on 07/19/15. No clinical or CT evidence of stroke. This appears to have been a drug reaction (possibly delayed reaction to propofol or Versed) - s/p cardioversion for recurrent a fib on 02-01-21 - s/p A Fib ablation by Dr Roblero at [facility] on 06/05/21, tikosyn stopped in June 2021 - recurrence of A Fib in late Jan 2022 treated with elec CV in early Mar 2022 - recurrence of A Fib on 05/07/22 and still in it - MPI of 05-13-22 showed no evidence of signif myocardial ischemia or infarction. Normal regional wall motion. LVEF 66% - initiation of flecainide 50 bid on 05-15-22, increased to 100 bid on 05-18-22 - S/P DC cardioversion on 06-10-22. Subsequent Zio showed up to 4 second pauses (associated with near-syncope). Beta-fidel stopped and no recurrence of symptoms since ASD - History of percutaneous closure of an atrial septal defect (secundum defect) with an Amplatzer device in November 2011 while in [place], [place]. - Last echocardiogram of May 22, 2020 showed LVEF 60-65%. Grade 2 diastolic dysfunction. LA is mod dilated. RA is mildly dilated. Interatrial septum is intact. PASP 35-40mmHg Ortho - DJD, s/p R knee replacement in Feb 2013 - S/p L TKR in Feb 2013 (Dr Taylor) Hematology - Pulmonary embolism in August 2009 - Coagulopathy diagnosed as prothrombin [id number] mutation, treated with chronic warfarin anticoag Obesity - Elevated body mass index of approx 37 Hyperparathyroidism - treated with partial parathyroidectomy at [facility] in August 2014 Sleep apnea syndrome - treated with CPAP Plan: * Continue Tikosyn protocol * EKGs from last night and this morning have been reviewed * Continue current dose * Continue to monitor lab MERCY GOMES MD FACP [facility] CCDS Oct 01, 2022 12:31
[2022-10-01 15:49] VITALS: BP 143/64
[2022-10-01] MEDS: warFARin 5 MG (COUMADIN) TAB PO SCH (17:41)
[2022-10-01 20:11] VITALS: BP_SYST 134; BP_SYST 144; BP_DIAS 62; BP_DIAS 65
[2022-10-01 23:28] VITALS: BP 145/67
[2022-10-02 03:13] VITALS: BP 122/58
[2022-10-02] MEDS: metFORMIN 500 MG TABLET PO SCH (06:13)
[2022-10-02 08:00] VITALS: BP 126/78
--- NOTE | 2022-10-02 08:32 | Progress Note - Cardiology ---
Cardiology SOAP Progress Note Subjective: Sitting up in bed States she feels well No c/o CP, SOB, palpitations, dizziness Objective: I&O/Vital Signs 10/01/22 10/01/22 10/02/22 10/02/22 23:16 23:28 01:00 03:13 Temp 36.3 36.4 Pulse 62 60 60 62 Resp 17 18 B/P (MAP) 145/67 (93) 122/58 (79) Pulse Ox 97 100 O2 Delivery Room Air Room Air 10/02/22 10/02/22 07:09 08:00 Temp 36.3 Pulse 60 75 Resp 18 B/P (MAP) 126/78 (94) Pulse Ox 95 O2 Delivery Room Air 10/02/22 00:00 Intake Total 1100 ml Output Total 1250 ml Balance -150 ml Weight (Pounds): 215 Weight (Ounces): 5.0 Weight (Calculated Kilograms): 97.943280 Constitutional: AAO x 3, well-developed, well-nourished Respiratory: No accessory muscle use, No respiratory distress; chest expansion is symmetric, chest is bilaterally symmetric, lungs clear to auscultation Cardiovascular: regular rate-rhythm; No JVD; S1 and S2 Gastrointestional: No tender; soft, audible bowel sounds Extremities: no lower extremity edema bilateral Neurologic/Psychiatric: other (moves all extremities) Skin: No rash on exposed areas, No ulcerations on exposed areas Results/Procedures: Labs Laboratory Tests 10/01/22 04:21 A/P: Assessment: Sinus node dysfunction with intermittent long pauses of 4 seconds or more and ep isodes of junctional rhythm with heart rate in the low 30s (symptomatic). - S/P dual chamber PPM implant on 07-08-22 Paroxysmal atrial fibrillation - saw Dr. Hdez at [facility] in June 2020 - tikosyn tx - TSH normal: 1.21 in July 2015 and in May 2016 - Angiographically normal cors and LVEF 60-65% and mild LVEDP elev, on cardiac cath of 06/13/14, done after an abnormal stress test - Transient episode of involuntary movements and confusion post successful external electrical cardioversion of atrial fibrillation on 07/19/15. No clinical or CT evidence of stroke. This appears to have been a drug reaction (possibly delayed reaction to propofol or Versed) - s/p cardioversion for recurrent a fib on 02-01-21 - s/p A Fib ablation by Dr Roblero at [facility] on 06/05/21, tikosyn stopped in June 2021 - recurrence of A Fib in late Jan 2022 treated with elec CV in early Mar 2022 - recurrence of A Fib on 05/07/22 and still in it - MPI of 05-13-22 showed no evidence of signif myocardial ischemia or infarction. Normal regional wall motion. LVEF 66% - initiation of flecainide 50 bid on 05-15-22, increased to 100 bid on 05-18-22 - S/P DC cardioversion on 06-10-22. Subsequent Zio showed up to 4 second pauses (associated with near-syncope). Beta-fidel stopped and no recurrence of symptoms since - Tikosyn initiated on 09-30-22 ASD - History of percutaneous closure of an atrial septal defect (secundum defect) with an Amplatzer device in November 2011 while in [place], [place]. - Last echocardiogram of May 22, 2020 showed LVEF 60-65%. Grade 2 diastolic dysfunction. LA is mod dilated. RA is mildly dilated. Interatrial septum is intact. PASP 35-40mmHg Ortho - DJD, s/p R knee replacement in Feb 2013 - S/p L TKR in Feb 2013 (Dr Taylor) Hematology - Pulmonary embolism in August 2009 - Coagulopathy diagnosed as prothrombin [id number] mutation, treated with chronic warfarin anticoag Obesity - Elevated body mass index of approx 37 Hyperparathyroidism - treated with partial parathyroidectomy at [facility] in August 2014 Sleep apnea syndrome - treated with CPAP Plan: * Continue Tikosyn protocol * EKG from last night reviewed - awaiting morning EKG (nurse notified to do) * Awaiting lab this morning * Continue current dose * Continue to monitor lab CARO HERBERT Oct 02, 2022 08:32
[2022-10-02] MEDS ORDERED: DOFE250C PO (08:34)
[2022-10-02 08:49] LABS: POTASSIUM 4.1 MMOL/L (3.6-5.0)
[2022-10-02 08:50] LABS: CALCIUM 9.7 MG/DL (8.5-10.1)
[2022-10-02 08:55] LABS: CREATININE SERUM 0.77 MG/DL (0.60-1.30)
[2022-10-02] MEDS: dilTIAZem ER 180 MG CAPSULE PO SCH (09:10)
[2022-10-02] MEDS: LACTOBACILLUS ACIDOPHILUS (PROBIOTIC) CAPSULE PO SCH (09:10)
[2022-10-02] MEDS: DOFETILIDE 125 MCG CAPSULE PO SCH (09:11)
[2022-10-02 11:49] VITALS: BP 138/70
--- NOTE | 2022-10-02 12:04 | Progress Note - Cardiology ---
Cardiology SOAP Progress Note Subjective: No cp or palp or syncope No n/v/d No focal weakness Objective: I&O/Vital Signs 10/02/22 10/02/22 10/02/22 10/02/22 01:00 03:13 07:09 08:00 Temp 36.4 36.3 Pulse 60 62 60 75 Resp 18 18 B/P (MAP) 122/58 (79) 126/78 (94) Pulse Ox 100 95 O2 Delivery Room Air Room Air 10/02/22 10/02/22 10/02/22 08:00 09:11 11:49 Temp 36.7 Pulse 73 77 Resp 14 B/P (MAP) 138/70 (92) Pulse Ox 98 97 O2 Delivery Room Air Room Air 10/02/22 00:00 Intake Total 1100 ml Output Total 1250 ml Balance -150 ml Weight (Pounds): 215 Weight (Ounces): 5.0 Weight (Calculated Kilograms): 97.151970 Constitutional: AAO x 3, well-developed, well-nourished Respiratory: No accessory muscle use, No respiratory distress; chest expansion is symmetric, chest is bilaterally symmetric, lungs clear to auscultation Cardiovascular: regular rate-rhythm; No JVD; S1 and S2 Gastrointestional: No tender; soft, audible bowel sounds Extremities: no lower extremity edema bilateral Neurologic/Psychiatric: other (moves all extremities) Skin: No rash on exposed areas, No ulcerations on exposed areas Results/Procedures: Labs Laboratory Tests 10/02/22 08:34: Sodium Level 140, Potassium Level 4.1, Chloride Level 107, Carbon Dioxide Level 24, Anion Gap 9, Blood Urea Nitrogen 14, Creatinine 0.77, Estimat Glomerular F iltration Rate 81, BUN/Creatinine Ratio 18, Glucose Level 154H, Calcium Level 9 .7 Laboratory Tests 10/01/22 04:21 10/02/22 08:34 A/P: Assessment: Sinus node dysfunction with intermittent long pauses of 4 seconds or more and episodes of junctional rhythm with heart rate in the low 30s (symptomatic). - S/P dual chamber PPM implant on 07-08-22 Paroxysmal atrial fibrillation - saw Dr. Hdez at [facility] in June 2020 - tikosyn tx - TSH normal: 1.21 in July 2015 and in May 2016 - Angiographically normal cors and LVEF 60-65% and mild LVEDP elev, on cardiac cath of 06/13/14, done after an abnormal stress test - Transient episode of involuntary movements and confusion post successful external electrical cardioversion of atrial fibrillation on 07/19/15. No clinical or CT evidence of stroke. This appears to have been a drug reaction (possibly delayed reaction to propofol or Versed) - s/p cardioversion for recurrent a fib on 02-01-21 - s/p A Fib ablation by Dr Roblero at [facility] on 06/05/21, tikosyn stopped in June 2021 - recurrence of A Fib in late Jan 2022 treated with elec CV in early Mar 2022 - recurrence of A Fib on 05/07/22 and still in it - MPI of 05-13-22 showed no evidence of signif myocardial ischemia or infarction. Normal regional wall motion. LVEF 66% - initiation of flecainide 50 bid on 05-15-22, increased to 100 bid on 05-18-22 - S/P DC cardioversion on 06-10-22. Subsequent Zio showed up to 4 second pauses (associated with near-syncope). Beta-fidel stopped and no recurrence of symptoms since - Tikosyn initiated on 09-30-22 ASD - History of percutaneous closure of an atrial septal defect (secundum defect) with an Amplatzer device in November 2011 while in [place], [place]. - Last echocardiogram of May 22, 2020 showed LVEF 60-65%. Grade 2 diastolic dysfunction. LA is mod dilated. RA is mildly dilated. Interatrial septum is intact. PASP 35-40mmHg Ortho - DJD, s/p R knee replacement in Feb 2013 - S/p L TKR in Feb 2013 (Dr Taylor) Hematology - Pulmonary embolism in August 2009 - Coagulopathy diagnosed as prothrombin [id number] mutation, treated with chronic warfarin anticoag Obesity - Elevated body mass index of approx 37 Hyperparathyroidism - treated with partial parathyroidectomy at [facility] in August 2014 Sleep apnea syndrome - treated with CPAP Plan: * She received her 5th dose of Tikosyn this am. If f/u ECG stable, then d/c today on current regimen. Also has h/o having tolerated Tikosyn on skilled nursing basis in the past * Labs reviewed * Outpt f/u advised MERCY GOMES MD FACP [facility] CCDS Oct 02, 2022 12:04
--- NOTE | 2022-10-02 12:10 | Cardiology Discharge Summary ---
Diagnosis/Chief Complaint Date of Admission Sep 30, 2022 at 07:39 Date of Discharge 10/02/22 Final/Discharge Diagnosis Sinus node dysfunction with intermittent long pauses of 4 seconds or more and episodes of junctional rhythm with heart rate in the low 30s (symptomatic). - S/P dual chamber PPM implant on 07-08-22 Paroxysmal atrial fibrillation - saw Dr. Hdez at [facility] in June 2020 - tikosyn tx - TSH normal: 1.21 in July 2015 and in May 2016 - Angiographically normal cors and LVEF 60-65% and mild LVEDP elev, on cardiac cath of 06/13/14, done after an abnormal stress test - Transient episode of involuntary movements and confusion post successful external electrical cardioversion of atrial fibrillation on 07/19/15. No clinical or CT evidence of stroke. This appears to have been a drug reaction (possibly delayed reaction to propofol or Versed) - s/p cardioversion for recurrent a fib on 02-01-21 - s/p A Fib ablation by Dr Roblero at [facility] on 06/05/21, tikosyn stopped in June 2021 - recurrence of A Fib in late Jan 2022 treated with elec CV in early Mar 2022 - recurrence of A Fib on 05/07/22 and still in it - MPI of 05-13-22 showed no evidence of signif myocardial ischemia or infarction. Normal regional wall motion. LVEF 66% - initiation of flecainide 50 bid on 05-15-22, increased to 100 bid on 05-18-22 - S/P DC cardioversion on 06-10-22. Subsequent Zio showed up to 4 second pauses (associated with near-syncope). Beta-fidel stopped and no recurrence of sympt oms since - Tikosyn initiated on 09-30-22 ASD - History of percutaneous closure of an atrial septal defect (secundum defect) with an Amplatzer device in November 2011 while in [place], [place]. - Last echocardiogram of May 22, 2020 showed LVEF 60-65%. Grade 2 diastolic dysfunction. LA is mod dilated. RA is mildly dilated. Interatrial septum is intact. 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 in August 2014 Sleep apnea syndrome - treated with CPAP Chief Complaint/HPI Chief Complaint/HPI Ms. Contreras is a 72 yr old female being admitted to [facility] for Tikosyn initiation. No c/o CP, SOB, palpitations, syncope or near syncope. No c/o n/v/d. She has been compliant with her medications. Tikosyn initiated during this hosp and pt was monitored. Has tolerated it well. QTc after 5th dose of Tikosyn is 433 msec. Also has previous h/o of good tolerance to Tikosyn w/o complications Discharge Summary Procedures None. Hospital Course Pending Labs Laboratory Tests 10/02/22 08:34: Sodium Level 140, Potassium Level 4.1, Chloride Level 107, Carbon Dioxide Level 24, Anion Gap 9, Blood Urea Nitrogen 14, Creatinine 0.77, Estimat Glomerular Filtration Rate 81, BUN/Creatinine Ratio 18, Glucose Level 154, Calcium Level 9.7 Discussion & Recommendations Home Medications Reviewed patient Home Medication Reconciliation performed by pharmacy medication reconciliations surfacing technician and/or nursing. Patients Allergies have been reviewed. Discharge Home Medications: Reviewed and agree with Discharge Medication list on patient's Discharge Instruction sheet MERCY GOMES MD FACP [facility] Oct 02, 2022 12:10
[2022-10-02] MEDS ORDERED: warFARin 5 MG (COUMADIN) TAB PO SCH (18:00)
== END 2022-10-02 13:30 | disposition home or self-care (01) | DRG 309 ==
LOC: CSD 07:39
PROVIDERS: ADMIT Internal Medicine Cardiovascular Disease; ATTEND Internal Medicine Cardiovascular Disease
DX: I49.5 Sick sinus syndrome (principal); Q21.10 Atrial septal defect, unspecified; I48.0 Paroxysmal atrial fibrillation; E66.9 Obesity, unspecified; Z68.37 Body mass index [BMI] 37.0-37.9, adult; E21.3 Hyperparathyroidism, unspecified; Z96.651 Presence of right artificial knee joint; Z79.01 Long term (current) use of anticoagulants; Z79.84 Long term (current) use of oral hypoglycemic drugs; Z79.899 Other long term (current) drug therapy; G47.33 Obstructive sleep apnea (adult) (pediatric); Z95.818 Presence of other cardiac implants and grafts; Z95.0 Presence of cardiac pacemaker; Z86.711 Personal history of pulmonary embolism
CPT/HCPCS: 36415; 80048; 83735; 85610; 93005

== ENCOUNTER 2022-11-19 09:20 | Outpatient (RCR) | payer MEDICARE, OTHER ==
[~2022-11-19 09:20] MED LIST changes: +DILT180C85 PO; -DOFETILIDE 250 MCG CAPSULE PO SCH
[2022-11-19 10:00] LABS: INR 2.2 (0.8-1.4); PROTHROMBIN TIME PATIENT 23.9 SEC (12.2-14.7)
== END 2022-12-16 | disposition home or self-care (01) ==
LOC: LAB 09:20
PROVIDERS: ATTEND Internal Medicine Cardiovascular Disease
DX: I48.0 Paroxysmal atrial fibrillation (principal)
CPT/HCPCS: 36415; 85610

== ENCOUNTER → 2022-12-15 | Outpatient (CLI) | payer MEDICARE, OTHER ==
[2022-12-15 11:05] LABS: ALBUMIN 4.1 GM/DL (3.2-4.5); POTASSIUM 4.3 MMOL/L (3.6-5.0)
[2022-12-15 11:06] LABS: CALCIUM 9.8 MG/DL (8.5-10.1)
[2022-12-15 11:08] LABS: TOTAL PROTEIN 7.4 GM/DL (6.4-8.2)
[2022-12-15 11:09] LABS: BILIRUBIN,TOTAL 0.4 MG/DL (0.1-1.0)
[2022-12-15 11:11] LABS: CREATININE SERUM 0.75 MG/DL (0.60-1.30)
== END ==
LOC: LAB 10:38
PROVIDERS: ATTEND Internal Medicine
DX: Z13.6 Encounter for screening for cardiovascular disorders (principal); E11.65 Type 2 diabetes mellitus with hyperglycemia; I10 Essential (primary) hypertension
CPT/HCPCS: 36415; 80053; 82465; 83036; 84478

== ENCOUNTER 2022-12-19 09:17 | Outpatient (RCR) | payer MEDICARE, OTHER ==
[2022-12-19 09:43] LABS: INR 2.7 (0.8-1.4); PROTHROMBIN TIME PATIENT 30.1 SEC (12.2-14.7)
== END 2023-01-15 | disposition home or self-care (01) ==
LOC: LAB 09:17
PROVIDERS: ATTEND Internal Medicine Cardiovascular Disease
DX: I48.0 Paroxysmal atrial fibrillation (principal)
CPT/HCPCS: 36415; 85610